=== PATIENT | male | born 1960 | race Caucasian/White ===

== ENCOUNTER 2020-09-16 08:00 | Outpatient (CLI) | payer MEDICAID ==
[2020-09-16 12:01] LABS: BASOPHILS # (AUTO) 0.1 10^3/uL (0.0-0.1); BASOPHILS % (AUTO) 1.1 %; EOSINOPHILS # (AUTO) 0.2 10^3/uL (0.0-0.7); HCT - HEMATOCRIT 45.4 % (42.0-52.0); HGB - HEMOGLOBIN 15.9 g/dL (14.0-18.0); LYMPHOCYTES # (AUTO) 1.5 10^3/uL (1.5-3.5); LYMPHOCYTES % (AUTO) 27.9 %; MEAN CORPUSCULAR HEMOGLOBIN 31.7 pg (27.0-31.0); MEAN CORPUSCULAR VOLUME 90.4 fL (80.0-94.0); MEAN PLATELET VOLUME 9.4 fL (7.4-11.4); MONOCYTES # (AUTO) 0.5 10^3/uL (0.0-1.0); MONOCYTES % (AUTO) 8.5 %; NEUTROPHILS # (AUTO) 3.2 10^3/uL (1.5-6.6); NEUTROPHILS % (AUTO) 58.9 %; PLT - PLATELET COUNT 268 10^3/uL (130-450); RED BLOOD COUNT 5.02 10^6/uL (4.70-6.10); RED CELL DISTRIBUTION WIDTH 12.2 % (12.0-15.0); WHITE BLOOD COUNT 5.4 x10^3/uL (4.8-10.8)
[2020-09-16 13:17] LABS: THYROID STIMULATING HORMONE 2.08 uIU/mL (0.34-5.60)
[2020-09-16 13:19] LABS: FREE T4 (FREE THYROXINE) 0.69 ng/dL (0.58-1.64)
[2020-09-16 13:20] LABS: ALBUMIN 4.2 g/dL (3.2-5.5); ALBUMIN/GLOBULIN RATIO 1.5 (1.0-2.2); ALKALINE PHOSPHATASE 65 IU/L (42-121); ALT ALANINE AMINOTRANSFERASE 24 IU/L (10-60); AST ASPARTATE AMINOTRANSFERASE 17 IU/L (10-42); BILIRUBIN,TOTAL 0.7 mg/dL (0.2-1.0); BUN - BLOOD UREA NITROGEN 13 mg/dL (6-20); CALCIUM 9.4 mg/dL (8.5-10.3); CARBON DIOXIDE - CO2 27 mmol/L (21-32); CHLORIDE 106 mmol/L (101-111); CREATININE 1.2 mg/dL (0.6-1.2); GFR - MDRD 62 (>89); GLUCOSE 96 mg/dL (70-100); POTASSIUM 3.8 mmol/L (3.5-5.0); SODIUM 142 mmol/L (135-145)
== END 2020-09-16 23:59 | disposition home or self-care (01) ==
LOC: LAB.WCP 08:00
PROVIDERS: ATTEND Psychiatry & Neurology Neurology
DX: F03.90 Unspecified dementia, unspecified severity, without behavioral disturbance, psychotic disturbance, mood disturbance, and anxiety (principal)
CPT/HCPCS: 36415; 80053; 82306; 82607; 83921; 84439; 84443; 85025; 86592; 86735; 86762

== ENCOUNTER 2022-01-16 05:36 | Emergency (ER) | payer MEDICAID ==
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
[2022-01-16 06:32] LABS: BASOPHILS % (AUTO) 0.5 %; EOSINOPHILS # (AUTO) 0.1 10^3/uL (0.0-0.7); EOSINOPHILS % (AUTO) 0.6 %; HCT - HEMATOCRIT 43.5 % (42.0-52.0); HGB - HEMOGLOBIN 15.7 g/dL (14.0-18.0); LYMPHOCYTES # (AUTO) 1.2 10^3/uL (1.5-3.5); LYMPHOCYTES % (AUTO) 15.6 %; MEAN CORPUSCULAR HEMOGLOBIN 31.7 pg (27.0-31.0); MEAN CORPUSCULAR HGB CONC 36.1 g/dL (32.0-36.0); MEAN CORPUSCULAR VOLUME 87.7 fL (80.0-94.0); MEAN PLATELET VOLUME 8.9 fL (7.4-11.4); MONOCYTES # (AUTO) 0.6 10^3/uL (0.0-1.0); MONOCYTES % (AUTO) 7.5 %; NEUTROPHILS # (AUTO) 5.9 10^3/uL (1.5-6.6); NEUTROPHILS % (AUTO) 75.4 %; PLT - PLATELET COUNT 265 10^3/uL (130-450); RED BLOOD COUNT 4.96 10^6/uL (4.70-6.10); RED CELL DISTRIBUTION WIDTH 12.1 % (12.0-15.0); WHITE BLOOD COUNT 7.9 x10^3/uL (4.8-10.8)
[2022-01-16 06:45] LABS: ALBUMIN 4.2 g/dL (3.2-5.5); ALBUMIN/GLOBULIN RATIO 1.6 (1.0-2.2); BILIRUBIN,TOTAL 1.2 mg/dL (0.2-1.0); CREATININE 1.2 mg/dL (0.6-1.2); POTASSIUM 3.9 mmol/L (3.5-5.0); TOTAL PROTEIN 6.9 g/dL (6.7-8.2)
--- OUTSIDE RECORDS SUMMARY | 2022-01-16 06:48 | EXTERNAL MEDICAL SUMMARY RPT | Continuity of Care Document ---
:1960 Author Organization [facility] Address [address] [place] [address] Phone Allergies and Intolerances date description facility type (no date) No Known Drug Allergies [facility] (unkn own) Encounters No information. Functional Status No information. Immunizations No information. Medications date description facility +0000 benzonatate 100 MG Oral Capsule [facility] Problems No information. Procedures date description facility +0000 [facility] +0000 [facility] Results/Labs test date author facility value unit interpret ation Result panel 1 (unknown) (no date) (unknown) (unknown) Negative (units (unkn own) unknown) Result panel 2 (unknown) (no date) (unknown) (unknown) (no value) (units (un known) unknown) (unknown) (no date) (unknown) (unknown) Date of (units (unkn own) Service: unknown) 11/06/21 (unknown) (no date) (unknown) (unknown) (no value) (units (un known) unknown) (unknown) (no date) (unknown) (unknown) Allergies (units (unk nown) unknown) (unknown) (no date) (unknown) (unknown) ED Orders (units (unk nown) unknown) (unknown) (no date) (unknown) (unknown) Emergency (units (unk nown) Report unknown) (unknown) (no date) (unknown) (unknown) [place] (units (unkn own) [facility] [address] unknown) [address] [place] [id number] (unknown) (no date) (unknown) (unknown) Lab Results (units (u nknown) unknown) (unknown) (no date) (unknown) (unknown) Vital Signs - (units (unknown) 8 hr unknown) (unknown) (no date) (unknown) (unknown) (no value) (units (un known) unknown) (unknown) (no date) (unknown) (unknown) 11/06/21 (units (unkn own) Range/Units unknown) (unknown) (no date) (unknown) (unknown) 22:00 (units (unkn own) unknown) (unknown) (no date) (unknown) (unknown) 11/06/21 (units (unkn own) unknown) (unknown) (no date) (unknown) (unknown) [id number] (units (unkn own) unknown) (unknown) (no date) (unknown) (unknown) 11/06/21 22:00 (units (unknown) unknown) (unknown) (no date) (unknown) (unknown) 22:07 (units (unkn own) unknown) (unknown) (no date) (unknown) (unknown) Age/Sex: 61 / (units (unknown) M unknown) (unknown) (no date) (unknown) (unknown) Allergy/AdvRea (units (unknown) c Type Severity unknown) Reaction Status Date / Time (unknown) (no date) (unknown) (unknown) Blood Pressure (units (unknown) 133/84 unknown) 11/06/21 22:07 (unknown) (no date) (unknown) (unknown) Blood Pressure (units (unknown) 133/84 unknown) (unknown) (no date) (unknown) (unknown) Essie Shetty (units (unknown) MD Teresa [Primary unknown) Care Provider] - (unknown) (no date) (unknown) (unknown) COVID19 -Nasal (units (unknown) RAPID/Pre-Proc unknown) Stat (unknown) (no date) (unknown) (unknown) Chief (units (unkn own) complaint: unknown) Upper Respiratory Symptoms (unknown) (no date) (unknown) (unknown) Course (units (unkn own) unknown) (unknown) (no date) (unknown) (unknown) : (units (unkn own) 1960 unknown) Acct:[id number] (unknown) (no date) (unknown) (unknown) Dementia (units (unkn own) unknown) (unknown) (no date) (unknown) (unknown) Departure (units (unk nown) unknown) (unknown) (no date) (unknown) (unknown) Discharge Plan (units (unknown) unknown) (unknown) (no date) (unknown) (unknown) ER Physician: (units (unknown) Victoriano Coats unknown) D.O. (unknown) (no date) (unknown) (unknown) Exam (units (unkn own) unknown) (unknown) (no date) (unknown) (unknown) General (units (unkn own) unknown) (unknown) (no date) (unknown) (unknown) H/O (units (unkn own) exploratory unknown) laparotomy (unknown) (no date) (unknown) (unknown) HPI - General (units (unknown) Adult unknown) (unknown) (no date) (unknown) (unknown) Initial Vital (units (unknown) Signs unknown) (unknown) (no date) (unknown) (unknown) Initial Vital (units (unknown) Signs: unknown) (unknown) (no date) (unknown) (unknown) Lab Data (units (unkn own) unknown) (unknown) (no date) (unknown) (unknown) Labs: (units (unkn own) unknown) (unknown) (no date) (unknown) (unknown) Medical (units (unkn own) Decision Making unknown) (unknown) (no date) (unknown) (unknown) Medical (units (unkn own) History unknown) (Updated 05/28/20 @ 00:00 by ) (unknown) (no date) (unknown) (unknown) Mode of (units (unkn own) arrival: unknown) Ambulatory (unknown) (no date) (unknown) (unknown) No Known Drug (units (unknown) Allergies unknown) Allergy Verified 05/13/20 15:39 (unknown) (no date) (unknown) (unknown) Ordered: (units (unkn own) unknown) (unknown) (no date) (unknown) (unknown) Orders (units (unkn own) unknown) (unknown) (no date) (unknown) (unknown) Patient (units (unkn own) History unknown) (unknown) (no date) (unknown) (unknown) Patient: (units (unkn own) Emeka Brown Mary Kay unknown) MR#: [id number] (unknown) (no date) (unknown) (unknown) Pulse Oximetry (units (unknown) 98 11/06/21 unknown) 22:07 (unknown) (no date) (unknown) (unknown) Pulse Oximetry (units (unknown) 98 unknown) (unknown) (no date) (unknown) (unknown) Pulse Rate 76 (units (unknown) 11/06/21 unknown) 22:07 (unknown) (no date) (unknown) (unknown) Pulse Rate 76 (units (unknown) unknown) (unknown) (no date) (unknown) (unknown) Referrals: (units (un known) unknown) (unknown) (no date) (unknown) (unknown) Related Data (units ( unknown) unknown) (unknown) (no date) (unknown) (unknown) Respiratory (units (u nknown) Rate 18 unknown) 11/06/21 22:07 (unknown) (no date) (unknown) (unknown) Respiratory (units (u nknown) Rate 18 unknown) (unknown) (no date) (unknown) (unknown) SARS-CoV-2 (units (un known) (PCR) Negative unknown) (Negative) (unknown) (no date) (unknown) (unknown) Signed By: (units (un known) unknown) (unknown) (no date) (unknown) (unknown) Smoking (units (unkn own) Status: Never unknown) smoker (unknown) (no date) (unknown) (unknown) Smoking (units (unkn own) Status: Never unknown) smoker (unknown) (no date) (unknown) (unknown) Social History (units (unknown) (Reviewed unknown) 05/13/20 @ 16:54 by Thais Sheehan DO) (unknown) (no date) (unknown) (unknown) Source: (units (unkn own) patient unknown) (unknown) (no date) (unknown) (unknown) Stated (units (unkn own) complaint: unknown) Coughing persistant X 6 (unknown) (no date) (unknown) (unknown) Substance Use (units (unknown) Type: does not unknown) use (unknown) (no date) (unknown) (unknown) Surgical (units (unkn own) History unknown) (Updated 05/13/20 @ 16:54 by Thais Sheehan DO) (unknown) (no date) (unknown) (unknown) Temperature (units (u nknown) 98.3 F unknown) 11/06/21 22:07 (unknown) (no date) (unknown) (unknown) Temperature (units (u nknown) 98.3 F unknown) (unknown) (no date) (unknown) (unknown) Time Seen by (units ( unknown) Provider: unknown) 11/06/21 22:06 (unknown) (no date) (unknown) (unknown) Vital Signs (units (u nknown) unknown) (unknown) (no date) (unknown) (unknown) Vital signs: (units ( unknown) unknown) (unknown) (no date) (unknown) (unknown) alcohol intake (units (unknown) frequency: unknown) holidays/specia l occasions only Result panel 3 (unknown) (no (unknown) (unknown) (no value) (units (unk nown) date) unknown) (unknown) (no (unknown) (unknown) Date of Service: (units (unknown) date) 11/06/21 unknown) (unknown) (no (unknown) (unknown) (no value) (units (unk nown) date) unknown) (unknown) (no (unknown) (unknown) 100 mg PO TID (units ( unknown) date) PRN (Reason: unknown) cough) Qty: 30 0RF (unknown) (no (unknown) (unknown) Allergies (units (unkn own) date) unknown) (unknown) (no (unknown) (unknown) Documented by: (units (unknown) date) HGUBERN unknown) (unknown) (no (unknown) (unknown) ED Orders (units (unkn own) date) unknown) (unknown) (no (unknown) (unknown) Emergency Report (units (unknown) date) unknown) (unknown) (no (unknown) (unknown) [facility] (units (unknown) date) [address] unknown) [place] [address] (unknown) (no (unknown) (unknown) Lab Results (units (un known) date) unknown) (unknown) (no (unknown) (unknown) Last Admin: (units (un known) date) 11/06/21 22:47 unknown) Dose: 100 mg (unknown) (no (unknown) (unknown) Previous Rx's (units ( unknown) date) unknown) (unknown) (no (unknown) (unknown) Stop: 11/06/21 (units (unknown) date) 22:36 unknown) (unknown) (no (unknown) (unknown) Vital Signs - 8 (units (unknown) date) hr unknown) (unknown) (no (unknown) (unknown) (no value) (units (unk nown) date) unknown) (unknown) (no (unknown) (unknown) 11/06/21 (units (unkno wn) date) Range/Units unknown) (unknown) (no (unknown) (unknown) 22:00 (units (unkno wn) date) unknown) (unknown) (no (unknown) (unknown) benzonatate 100 (units (unknown) date) mg capsule unknown) (unknown) (no (unknown) (unknown) 11/06/21 (units (unkno wn) date) unknown) (unknown) (no (unknown) (unknown) Cough (units (unkno wn) date) unknown) (unknown) (no (unknown) (unknown) Medication (units (unk nown) date) Instructions unknown) Recorded (unknown) (no (unknown) (unknown) [id number] (units (unkno wn) date) unknown) (unknown) (no (unknown) (unknown) 11/06/21 22:00 (units (unknown) date) unknown) (unknown) (no (unknown) (unknown) 22:07 (units (unkno wn) date) unknown) (unknown) (no (unknown) (unknown) Activity (units (unkno wn) date) Restrictions/Tono unknown) tional Instructions: (unknown) (no (unknown) (unknown) Age/Sex: 61 / M (units (unknown) date) unknown) (unknown) (no (unknown) (unknown) Allergy/AdvReac (units (unknown) date) Type Severity unknown) Reaction Status Date / Time (unknown) (no (unknown) (unknown) Benzonatate (units (un known) date) (Benzonatate 100 unknown) Mg Capsule) 100 mg PO NOW ONE (unknown) (no (unknown) (unknown) Blood Pressure (units (unknown) date) 133/84 11/06/21 unknown) 22:07 (unknown) (no (unknown) (unknown) Blood Pressure (units (unknown) date) 133/84 unknown) (unknown) (no (unknown) (unknown) Essie Shetty (units (unknown) date) MD Teresa [Primary unknown) Care Provider] - (unknown) (no (unknown) (unknown) COVID19 -Nasal (units (unknown) date) RAPID/Pre-Proc unknown) Stat (unknown) (no (unknown) (unknown) Chief complaint: (units (unknown) date) Upper Respiratory unknown) Symptoms (unknown) (no (unknown) (unknown) Clinical (units (unkno wn) date) Impression: unknown) (unknown) (no (unknown) (unknown) Contact your (units (un known) date) primary doctor unknown) for a follow-up. Return to the emergency department (unknown) (no (unknown) (unknown) Course (units (unkno wn) date) unknown) (unknown) (no (unknown) (unknown) : 1960 (units (unknown) date) Acct:[id number] unknown) (unknown) (no (unknown) (unknown) Dementia (units (unkno wn) date) unknown) (unknown) (no (unknown) (unknown) Departure (units (unkn own) date) unknown) (unknown) (no (unknown) (unknown) Discharge Plan (units (unknown) date) unknown) (unknown) (no (unknown) (unknown) Discontinued (units (u nknown) date) Medications unknown) (unknown) (no (unknown) (unknown) ER Physician: (units ( unknown) date) Victoriano Coats unknown) D.O. (unknown) (no (unknown) (unknown) Exam (units (unkno wn) date) unknown) (unknown) (no (unknown) (unknown) General (units (unkno wn) date) unknown) (unknown) (no (unknown) (unknown) H/O exploratory (units (unknown) date) laparotomy unknown) (unknown) (no (unknown) (unknown) HPI - General (units ( unknown) date) Adult unknown) (unknown) (no (unknown) (unknown) Initial Vital (units ( unknown) date) Signs unknown) (unknown) (no (unknown) (unknown) Initial Vital (units ( unknown) date) Signs: unknown) (unknown) (no (unknown) (unknown) Instructions: (units ( unknown) date) Cough unknown) (Alternative Therapy), Cough (unknown) (no (unknown) (unknown) Lab Data (units (unkno wn) date) unknown) (unknown) (no (unknown) (unknown) Labs: (units (unkno wn) date) unknown) (unknown) (no (unknown) (unknown) Medical Decision (units (unknown) date) Making unknown) (unknown) (no (unknown) (unknown) Medical History (units (unknown) date) (Updated 11/06/21 unknown) @ 22:39 by Victoriano Coats DO) (unknown) (no (unknown) (unknown) Mode of arrival: (units (unknown) date) Ambulatory unknown) (unknown) (no (unknown) (unknown) New (units (unkno wn) date) unknown) (unknown) (no (unknown) (unknown) No Known Drug (units ( unknown) date) Allergies Allergy unknown) Verified 05/13/20 15:39 (unknown) (no (unknown) (unknown) Ordered: (units (unkno wn) date) unknown) (unknown) (no (unknown) (unknown) Orders (units (unkno wn) date) unknown) (unknown) (no (unknown) (unknown) Patient (units (unkno wn) date) Disposition: Home unknown) (unknown) (no (unknown) (unknown) Patient History (units (unknown) date) unknown) (unknown) (no (unknown) (unknown) Patient: (units (unkno wn) date) Emeka Brown V unknown) MR#: [id number] (unknown) (no (unknown) (unknown) Prescriptions: (units (unknown) date) unknown) (unknown) (no (unknown) (unknown) Pulse Oximetry (units (unknown) date) 98 11/06/21 unknown) 22:07 (unknown) (no (unknown) (unknown) Pulse Oximetry (units (unknown) date) 98 unknown) (unknown) (no (unknown) (unknown) Pulse Rate 76 (units (unknown) date) 11/06/21 22:07 unknown) (unknown) (no (unknown) (unknown) Pulse Rate 76 (units ( unknown) date) unknown) (unknown) (no (unknown) (unknown) Referrals: (units (unk nown) date) unknown) (unknown) (no (unknown) (unknown) Related Data (units (u nknown) date) unknown) (unknown) (no (unknown) (unknown) Respiratory Rate (units (unknown) date) 18 11/06/21 unknown) 22:07 (unknown) (no (unknown) (unknown) Respiratory Rate (units (unknown) date) 18 unknown) (unknown) (no (unknown) (unknown) SARS-CoV-2 (PCR) (units (unknown) date) Negative unknown) (Negative) (unknown) (no (unknown) (unknown) Signed By: (units (unk nown) date) unknown) (unknown) (no (unknown) (unknown) Smoking Status: (units (unknown) date) Never smoker unknown) (unknown) (no (unknown) (unknown) Smoking Status: (units (unknown) date) Never smoker unknown) (unknown) (no (unknown) (unknown) Social History (units (unknown) date) (Reviewed unknown) 05/13/20 @ 16:54 by Thais Sheehan DO) (unknown) (no (unknown) (unknown) Source: patient (units (unknown) date) unknown) (unknown) (no (unknown) (unknown) Stated (units (unkno wn) date) complaint: unknown) Coughing persistant X 6 (unknown) (no (unknown) (unknown) Substance Use (units ( unknown) date) Type: does not unknown) use (unknown) (no (unknown) (unknown) Surgical History (units (unknown) date) (Updated 05/13/20 unknown) @ 16:54 by Thais Sheehan DO) (unknown) (no (unknown) (unknown) Temperature (units (un known) date) 98.3 F 11/06/21 unknown) 22:07 (unknown) (no (unknown) (unknown) Temperature 98.3 (units (unknown) date) F unknown) (unknown) (no (unknown) (unknown) Time Seen by (units (u nknown) date) Provider: unknown) 11/06/21 22:06 (unknown) (no (unknown) (unknown) Vital Signs (units (un known) date) unknown) (unknown) (no (unknown) (unknown) Vital signs: (units (u nknown) date) unknown) (unknown) (no (unknown) (unknown) Your COVID test (units (unknown) date) today was unknown) negative. You do not have pneumonia. Recommend that (unknown) (no (unknown) (unknown) alcohol intake (units (unknown) date) frequency: unknown) holidays/special occasions only (unknown) (no (unknown) (unknown) benzonatate 100 (units (unknown) date) mg capsule 100 mg unknown) PO TID PRN #30 cap 11/06/21 (unknown) (no (unknown) (unknown) for any new or (units (unknown) date) worsening unknown) symptoms. (unknown) (no (unknown) (unknown) take the cough (units (unknown) date) away. It was unknown) sent to [facility] in [place] per your request. (unknown) (no (unknown) (unknown) we try a cough (units (unknown) date) medicine unknown) unfortunately this medicine does not always completely Result panel 4 (unknown) (no (unknown) (unknown) (no value) (units (unk nown) date) unknown) (unknown) (no (unknown) (unknown) Date of Service: (units (unknown) date) 11/06/21 unknown) (unknown) (no (unknown) (unknown) (no value) (units (unk nown) date) unknown) (unknown) (no (unknown) (unknown) <Electronically (units (unknown) date) signed by Joby GravesOLavonne> (unknown) (no (unknown) (unknown) 11/06/21 2338 (units ( unknown) date) unknown) (unknown) (no (unknown) (unknown) 100 mg PO TID (units ( unknown) date) PRN (Reason: unknown) cough) Qty: 30 0RF (unknown) (no (unknown) (unknown) Allergies (units (unkn own) date) unknown) (unknown) (no (unknown) (unknown) Documented by: (units (unknown) date) HGUBERN unknown) (unknown) (no (unknown) (unknown) ED Orders (units (unkn own) date) unknown) (unknown) (no (unknown) (unknown) Emergency Report (units (unknown) date) unknown) (unknown) (no (unknown) (unknown) [facility] (units (unknown) date) [address] unknown) [place] [address] (unknown) (no (unknown) (unknown) Lab Results (units (un known) date) unknown) (unknown) (no (unknown) (unknown) Last Admin: (units (un known) date) 11/06/21 22:47 unknown) Dose: 100 mg (unknown) (no (unknown) (unknown) Previous Rx's (units ( unknown) date) unknown) (unknown) (no (unknown) (unknown) Stop: 11/06/21 (units (unknown) date) 22:36 unknown) (unknown) (no (unknown) (unknown) Vital Signs - 8 (units (unknown) date) hr unknown) (unknown) (no (unknown) (unknown) (no value) (units (unk nown) date) unknown) (unknown) (no (unknown) (unknown) 11/06/21 (units (unkno wn) date) Range/Units unknown) (unknown) (no (unknown) (unknown) 22:00 (units (unkno wn) date) unknown) (unknown) (no (unknown) (unknown) benzonatate 100 (units (unknown) date) mg capsule unknown) (unknown) (no (unknown) (unknown) 11/06/21 (units (unkno wn) date) unknown) (unknown) (no (unknown) (unknown) Cough (units (unkno wn) date) unknown) (unknown) (no (unknown) (unknown) Medication (units (unk nown) date) Instructions unknown) Recorded (unknown) (no (unknown) (unknown) [id number] (units (unkno wn) date) unknown) (unknown) (no (unknown) (unknown) 11/06/21 22:00 (units (unknown) date) unknown) (unknown) (no (unknown) (unknown) 22:07 (units (unkno wn) date) unknown) (unknown) (no (unknown) (unknown) 61-year-old Male (units (unknown) date) who is here for unknown) evaluation of a dry cough that he has had for (unknown) (no (unknown) (unknown) Activity (units (unkno wn) date) Restrictions/Tono unknown) tional Instructions: (unknown) (no (unknown) (unknown) Age/Sex: 61 / M (units (unknown) date) unknown) (unknown) (no (unknown) (unknown) Allergy/AdvReac (units (unknown) date) Type Severity unknown) Reaction Status Date / Time (unknown) (no (unknown) (unknown) Auscultation: (units ( unknown) date) clear to unknown) auscultation bilaterally (unknown) (no (unknown) (unknown) Benzonatate (units (un known) date) (Benzonatate 100 unknown) Mg Capsule) 100 mg PO NOW ONE (unknown) (no (unknown) (unknown) Blood Pressure (units (unknown) date) 133/84 11/06/21 unknown) 22:07 (unknown) (no (unknown) (unknown) Blood Pressure (units (unknown) date) 133/84 unknown) (unknown) (no (unknown) (unknown) Essie Shetty (units (unknown) date) MD Teresa [Primary unknown) Care Provider] - (unknown) (no (unknown) (unknown) COVID is (units (unkno wn) date) negative. Lungs unknown) are clear. Nonproductive cough. Not hypoxic. Not (unknown) (no (unknown) (unknown) COVID19 -Nasal (units (unknown) date) RAPID/Pre-Proc unknown) Stat (unknown) (no (unknown) (unknown) Cardiovascular (units (unknown) date) unknown) (unknown) (no (unknown) (unknown) Cardiovascular: (units (unknown) date) Reports system unknown) reviewed and no additional complaints, except as (unknown) (no (unknown) (unknown) Chief complaint: (units (unknown) date) Upper Respiratory unknown) Symptoms (unknown) (no (unknown) (unknown) Clinical (units (unkno wn) date) Impression: unknown) (unknown) (no (unknown) (unknown) Const (units (unkno wn) date) unknown) (unknown) (no (unknown) (unknown) Constitutional (units (unknown) date) unknown) (unknown) (no (unknown) (unknown) Constitutional: (units (unknown) date) Denies fever(s) unknown) (unknown) (no (unknown) (unknown) Contact your (units (un known) date) primary doctor unknown) for a follow-up. Return to the emergency department (unknown) (no (unknown) (unknown) Course (units (unkno wn) date) unknown) (unknown) (no (unknown) (unknown) : 1960 (units (unknown) date) Acct:[id number] unknown) (unknown) (no (unknown) (unknown) Dementia (units (unkno wn) date) unknown) (unknown) (no (unknown) (unknown) Departure (units (unkn own) date) unknown) (unknown) (no (unknown) (unknown) Discharge Plan (units (unknown) date) unknown) (unknown) (no (unknown) (unknown) Discontinued (units (u nknown) date) Medications unknown) (unknown) (no (unknown) (unknown) ENT (units (unkno wn) date) unknown) (unknown) (no (unknown) (unknown) ER Physician: (units ( unknown) date) Victoriano Coats unknown) D.O. (unknown) (no (unknown) (unknown) Ears, Nose, (units (un known) date) Mouth, and unknown) Throat: Reports system reviewed and no additional (unknown) (no (unknown) (unknown) Ears: TM's (units (unk nown) date) normal unknown) bilaterally (unknown) (no (unknown) (unknown) Effort + (units (unkno wn) date) Inspection: unknown) normal respiratory effort (unknown) (no (unknown) (unknown) Exam (units (unkno wn) date) unknown) (unknown) (no (unknown) (unknown) Extrem (units (unkno wn) date) unknown) (unknown) (no (unknown) (unknown) General (units (unkno wn) date) unknown) (unknown) (no (unknown) (unknown) General: (units (unkno wn) date) cooperative, unknown) comfortable and well developed (unknown) (no (unknown) (unknown) General: no (units (un known) date) rashes or lesions unknown) noted (unknown) (no (unknown) (unknown) General: normal (units (unknown) date) to inspection and unknown) capillary refill normal (unknown) (no (unknown) (unknown) H/O exploratory (units (unknown) date) laparotomy unknown) (unknown) (no (unknown) (unknown) HENMT (units (unkno wn) date) unknown) (unknown) (no (unknown) (unknown) HPI - General (units ( unknown) date) Adult unknown) (unknown) (no (unknown) (unknown) HPI narrative: (units (unknown) date) unknown) (unknown) (no (unknown) (unknown) Head: normal to (units (unknown) date) inspection and unknown) normocephalic (unknown) (no (unknown) (unknown) Hematologic/Lymp (units (unknown) date) hatic unknown) (unknown) (no (unknown) (unknown) History of (units (unk nown) date) Present Illness unknown) (unknown) (no (unknown) (unknown) Initial Vital (units ( unknown) date) Signs unknown) (unknown) (no (unknown) (unknown) Initial Vital (units ( unknown) date) Signs: unknown) (unknown) (no (unknown) (unknown) Instructions: (units ( unknown) date) Cough unknown) (Alternative Therapy), Cough (unknown) (no (unknown) (unknown) Integumentary/Br (units (unknown) date) easts unknown) (unknown) (no (unknown) (unknown) Lab Data (units (unkno wn) date) unknown) (unknown) (no (unknown) (unknown) Labs: (units (unkno wn) date) unknown) (unknown) (no (unknown) (unknown) MDM Narrative (units ( unknown) date) unknown) (unknown) (no (unknown) (unknown) Medical Decision (units (unknown) date) Making unknown) (unknown) (no (unknown) (unknown) Medical History (units (unknown) date) (Reviewed unknown) 11/06/21 @ 23:36 by Victoriano Coats DO) (unknown) (no (unknown) (unknown) Medical decision (units (unknown) date) making narrative: unknown) (unknown) (no (unknown) (unknown) Mode of arrival: (units (unknown) date) Ambulatory unknown) (unknown) (no (unknown) (unknown) Mouth: oral (units (un known) date) mucosae normal unknown) (unknown) (no (unknown) (unknown) New (units (unkno wn) date) unknown) (unknown) (no (unknown) (unknown) No Known Drug (units ( unknown) date) Allergies Allergy unknown) Verified 05/13/20 15:39 (unknown) (no (unknown) (unknown) On (units (unkno wn) date) Anticoagulants: unknown) No (unknown) (no (unknown) (unknown) Ordered: (units (unkno wn) date) unknown) (unknown) (no (unknown) (unknown) Orders (units (unkno wn) date) unknown) (unknown) (no (unknown) (unknown) Patient (units (unkno wn) date) Disposition: Home unknown) (unknown) (no (unknown) (unknown) Patient History (units (unknown) date) unknown) (unknown) (no (unknown) (unknown) Patient: (units (unkno wn) date) Emeka Brown V unknown) MR#: [id number] (unknown) (no (unknown) (unknown) Prescriptions: (units (unknown) date) unknown) (unknown) (no (unknown) (unknown) Pulse Oximetry (units (unknown) date) 98 11/06/21 unknown) 22:07 (unknown) (no (unknown) (unknown) Pulse Oximetry (units (unknown) date) 98 unknown) (unknown) (no (unknown) (unknown) Pulse Rate 76 (units (unknown) date) 11/06/21 22:07 unknown) (unknown) (no (unknown) (unknown) Pulse Rate 76 (units ( unknown) date) unknown) (unknown) (no (unknown) (unknown) Referrals: (units (unk nown) date) unknown) (unknown) (no (unknown) (unknown) Related Data (units (u nknown) date) unknown) (unknown) (no (unknown) (unknown) Resp (units (unkno wn) date) unknown) (unknown) (no (unknown) (unknown) Respiratory (units (un known) date) unknown) (unknown) (no (unknown) (unknown) Respiratory Rate (units (unknown) date) 18 11/06/21 unknown) 22:07 (unknown) (no (unknown) (unknown) Respiratory Rate (units (unknown) date) 18 unknown) (unknown) (no (unknown) (unknown) Respiratory: (units (u nknown) date) Reports as per unknown) HPI and Reports system reviewed and no additional (unknown) (no (unknown) (unknown) Review of (units (unkn own) date) Systems unknown) (unknown) (no (unknown) (unknown) SARS-CoV-2 (PCR) (units (unknown) date) Negative unknown) (Negative) (unknown) (no (unknown) (unknown) Signed By: (units (unk nown) date) unknown) (unknown) (no (unknown) (unknown) Skin (units (unkno wn) date) unknown) (unknown) (no (unknown) (unknown) Skin/Breast: (units (u nknown) date) Reports system unknown) reviewed and no additional complaints, except as (unknown) (no (unknown) (unknown) Smoking Status: (units (unknown) date) Never smoker unknown) (unknown) (no (unknown) (unknown) Smoking Status: (units (unknown) date) Never smoker unknown) (unknown) (no (unknown) (unknown) Social History (units (unknown) date) (Reviewed unknown) 11/06/21 @ 23:36 by Victoriano Coats DO) (unknown) (no (unknown) (unknown) Source: patient (units (unknown) date) unknown) (unknown) (no (unknown) (unknown) Stated (units (unkno wn) date) complaint: unknown) Coughing persistant X 6 (unknown) (no (unknown) (unknown) Substance Use (units ( unknown) date) Type: does not unknown) use (unknown) (no (unknown) (unknown) Surgical History (units (unknown) date) (Updated 05/13/20 unknown) @ 16:54 by Thais Sheehan DO) (unknown) (no (unknown) (unknown) Temperature (units (un known) date) 98.3 F 11/06/21 unknown) 22:07 (unknown) (no (unknown) (unknown) Temperature 98.3 (units (unknown) date) F unknown) (unknown) (no (unknown) (unknown) Throat: (units (unkno wn) date) posterior unknown) oropharynx normal (unknown) (no (unknown) (unknown) Time Seen by (units (u nknown) date) Provider: unknown) 11/06/21 22:06 (unknown) (no (unknown) (unknown) Vital Signs (units (un known) date) unknown) (unknown) (no (unknown) (unknown) Vital signs: (units (u nknown) date) unknown) (unknown) (no (unknown) (unknown) Your COVID test (units (unknown) date) today was unknown) negative. You do not have pneumonia. Recommend that (unknown) (no (unknown) (unknown) alcohol intake (units (unknown) date) frequency: unknown) holidays/special occasions only (unknown) (no (unknown) (unknown) arrival. Was (units ( unknown) date) concerned that unknown) the cough has persisted this long (unknown) (no (unknown) (unknown) benzonatate 100 (units (unknown) date) mg capsule 100 mg unknown) PO TID PRN #30 cap 11/06/21 (unknown) (no (unknown) (unknown) complaints, (units (un known) date) except as unknown) documented (unknown) (no (unknown) (unknown) complaints, (units (un known) date) except as unknown) documented and Reports as per HPI (unknown) (no (unknown) (unknown) documented (units (unk nown) date) unknown) (unknown) (no (unknown) (unknown) for any new or (units (unknown) date) worsening unknown) symptoms. (unknown) (no (unknown) (unknown) given return (units (u nknown) date) precautions. He unknown) did expressed understanding and agreement. (unknown) (no (unknown) (unknown) given the nature (units (unknown) date) of the cough. No unknown) indication for antibiotics currently. Will (unknown) (no (unknown) (unknown) he was informed (units (unknown) date) that this may not unknown) take his symptoms completely way. He was (unknown) (no (unknown) (unknown) indication for (units (unknown) date) radiologic unknown) studies. I do suspect upper respiratory infection (unknown) (no (unknown) (unknown) provide Tessalon (units (unknown) date) Perles to see if unknown) this does not improve so his symptoms however (unknown) (no (unknown) (unknown) shortness of (units (u nknown) date) breath, headache. unknown) Has not tried anything for symptoms prior to (unknown) (no (unknown) (unknown) tachypneic. (units (un known) date) Clear lung exam. unknown) Afebrile. Low suspicion for pneumonia. No (unknown) (no (unknown) (unknown) take the cough (units (unknown) date) away. It was unknown) sent to [facility] in [place] per your request. (unknown) (no (unknown) (unknown) the past 6 days. (units (unknown) date) He denies sinus unknown) congestion, sore throat, productive cough, (unknown) (no (unknown) (unknown) we try a cough (units (unknown) date) medicine unknown) unfortunately this medicine does not always completely Result panel 5 (unknown) (no (unknown) (unknown) (no value) (units (unk nown) date) unknown) (unknown) (no (unknown) (unknown) Date of (units (unkno wn) date) Service: unknown) 01/15/22 (unknown) (no (unknown) (unknown) (no value) (units (unk nown) date) unknown) (unknown) (no (unknown) (unknown) 100 mg PO TID (units ( unknown) date) PRN (Reason: unknown) cough) Qty: 30 0RF (unknown) (no (unknown) (unknown) Allergies (units (unkn own) date) unknown) (unknown) (no (unknown) (unknown) ED Orders (units (unkn own) date) unknown) (unknown) (no (unknown) (unknown) Emergency (units (unkn own) date) Report unknown) (unknown) (no (unknown) (unknown) [facility] (units (unknown) date) [address] [place] [address] unknown) [place] [address] (unknown) (no (unknown) (unknown) Previous Rx's (units ( unknown) date) unknown) (unknown) (no (unknown) (unknown) Vital Signs - 8 (units (unknown) date) hr unknown) (unknown) (no (unknown) (unknown) (no value) (units (unk nown) date) unknown) (unknown) (no (unknown) (unknown) benzonatate 100 (units (unknown) date) mg capsule unknown) (unknown) (no (unknown) (unknown) 01/15/22 (units (unkno wn) date) unknown) (unknown) (no (unknown) (unknown) Medication (units (unk nown) date) Instructions unknown) Recorded (unknown) (no (unknown) (unknown) [id number] (units (unkno wn) date) unknown) (unknown) (no (unknown) (unknown) 01/15/22 10:07 (units (unknown) date) unknown) (unknown) (no (unknown) (unknown) 10:08 (units (unkno wn) date) unknown) (unknown) (no (unknown) (unknown) Age/Sex: 61 / M (units (unknown) date) unknown) (unknown) (no (unknown) (unknown) Allergy/AdvReac (units (unknown) date) Type Severity unknown) Reaction Status Date / Time (unknown) (no (unknown) (unknown) Blood Pressure (units (unknown) date) 139/89 unknown) 01/15/22 10:08 (unknown) (no (unknown) (unknown) Blood Pressure (units (unknown) date) 139/89 unknown) (unknown) (no (unknown) (unknown) Essie Shetty (units (unknown) date) MD Teresa [Primary unknown) Care Provider] - (unknown) (no (unknown) (unknown) Chief (units (unkno wn) date) Complaint: unknown) Psychiatric Symptoms (unknown) (no (unknown) (unknown) Consult to [facility] [employer] (units (unknown) date) - Social unknown) Services Stat (unknown) (no (unknown) (unknown) Course (units (unkno wn) date) unknown) (unknown) (no (unknown) (unknown) : 1960 (units (unknown) date) unknown) Acct:[id number] (unknown) (no (unknown) (unknown) Dementia (units (unkno wn) date) unknown) (unknown) (no (unknown) (unknown) Departure (units (unkn own) date) unknown) (unknown) (no (unknown) (unknown) Discharge Plan (units (unknown) date) unknown) (unknown) (no (unknown) (unknown) ER Physician: (units ( unknown) date) Victoriano Coats unknown) D.O. (unknown) (no (unknown) (unknown) Exam (units (unkno wn) date) unknown) (unknown) (no (unknown) (unknown) General (units (unkno wn) date) unknown) (unknown) (no (unknown) (unknown) H/O exploratory (units (unknown) date) laparotomy unknown) (unknown) (no (unknown) (unknown) HPI - Psych (units (un known) date) unknown) (unknown) (no (unknown) (unknown) Initial Vital (units ( unknown) date) Signs unknown) (unknown) (no (unknown) (unknown) Initial Vital (units ( unknown) date) Signs: unknown) (unknown) (no (unknown) (unknown) Medical History (units (unknown) date) (Reviewed unknown) 11/06/21 @ 23:36 by Victoriano Coats DO) (unknown) (no (unknown) (unknown) Mode of (units (unkno wn) date) arrival: Family unknown) Vehicle (unknown) (no (unknown) (unknown) No Action (units (unkn own) date) unknown) (unknown) (no (unknown) (unknown) No Known Drug (units ( unknown) date) Allergies unknown) Allergy Verified 01/15/22 10:13 (unknown) (no (unknown) (unknown) Ordered: (units (unkno wn) date) unknown) (unknown) (no (unknown) (unknown) Orders (units (unkno wn) date) unknown) (unknown) (no (unknown) (unknown) Oxygen Delivery (units (unknown) date) Method unknown) 01/15/22 10:08 (unknown) (no (unknown) (unknown) Oxygen Delivery (units (unknown) date) Method Room Air unknown) (unknown) (no (unknown) (unknown) Patient History (units (unknown) date) unknown) (unknown) (no (unknown) (unknown) Patient: (units (unkno wn) date) Emeka Brown V unknown) MR#: [id number] (unknown) (no (unknown) (unknown) Prescriptions: (units (unknown) date) unknown) (unknown) (no (unknown) (unknown) Pulse Oximetry (units (unknown) date) 97 01/15/22 unknown) 10:08 (unknown) (no (unknown) (unknown) Pulse Oximetry (units (unknown) date) 97 unknown) (unknown) (no (unknown) (unknown) Pulse Rate 76 (units (unknown) date) 01/15/22 10:08 unknown) (unknown) (no (unknown) (unknown) Pulse Rate 76 (units ( unknown) date) unknown) (unknown) (no (unknown) (unknown) Referrals: (units (unk nown) date) unknown) (unknown) (no (unknown) (unknown) Related Data (units (u nknown) date) unknown) (unknown) (no (unknown) (unknown) Respiratory (units (un known) date) Rate 20 unknown) 01/15/22 10:08 (unknown) (no (unknown) (unknown) Respiratory (units (un known) date) Rate 20 unknown) (unknown) (no (unknown) (unknown) Signed By: (units (unk nown) date) unknown) (unknown) (no (unknown) (unknown) Smoking Status: (units (unknown) date) Never smoker unknown) (unknown) (no (unknown) (unknown) Smoking Status: (units (unknown) date) Never smoker unknown) (unknown) (no (unknown) (unknown) Social History (units (unknown) date) (Reviewed unknown) 11/06/21 @ 23:36 by Victoriano Coats DO) (unknown) (no (unknown) (unknown) Source: patient (units (unknown) date) unknown) (unknown) (no (unknown) (unknown) Stated (units (unkno wn) date) Complaint: unknown) Mental concerns- not taking meds (unknown) (no (unknown) (unknown) Substance Use (units ( unknown) date) Type: does not unknown) use (unknown) (no (unknown) (unknown) Surgical (units (unkno wn) date) History (Updated unknown) 05/13/20 @ 16:54 by Thais Sheehan DO) (unknown) (no (unknown) (unknown) Temperature (units (un known) date) 98.6 F unknown) 01/15/22 10:08 (unknown) (no (unknown) (unknown) Temperature (units (un known) date) 98.6 F unknown) (unknown) (no (unknown) (unknown) Time Seen by (units (u nknown) date) Provider: unknown) 01/15/22 10:06 (unknown) (no (unknown) (unknown) Vital Signs (units (un known) date) unknown) (unknown) (no (unknown) (unknown) Vital signs: (units (u nknown) date) unknown) (unknown) (no (unknown) (unknown) alcohol intake (units (unknown) date) frequency: unknown) holidays/special occasions only (unknown) (no (unknown) (unknown) benzonatate 100 (units (unknown) date) mg capsule 100 unknown) mg PO TID PRN cough #30 caps 11/06/21 Result panel 6 (unknown) (no (unknown) (unknown) (no value) (units (unk nown) date) unknown) (unknown) (no (unknown) (unknown) Date of Service: (units (unknown) date) 01/15/22 unknown) (unknown) (no (unknown) (unknown) (no value) (units (unk nown) date) unknown) (unknown) (no (unknown) (unknown) 100 mg PO TID PRN (units (unknown) date) (Reason: cough) unknown) Qty: 30 0RF (unknown) (no (unknown) (unknown) Allergies (units (unkn own) date) unknown) (unknown) (no (unknown) (unknown) ED Orders (units (unkn own) date) unknown) (unknown) (no (unknown) (unknown) Emergency Report (units (unknown) date) unknown) (unknown) (no (unknown) (unknown) [facility] (units (unknown) date) [address] [place] [address] unknown) [place] [address] (unknown) (no (unknown) (unknown) Previous Rx's (units ( unknown) date) unknown) (unknown) (no (unknown) (unknown) Vital Signs - 8 hr (units (unknown) date) unknown) (unknown) (no (unknown) (unknown) (no value) (units (unk nown) date) unknown) (unknown) (no (unknown) (unknown) benzonatate 100 mg (units (unknown) date) capsule unknown) (unknown) (no (unknown) (unknown) 01/15/22 (units (unkno wn) date) unknown) (unknown) (no (unknown) (unknown) Medication (units (unk nown) date) Instructions unknown) Recorded (unknown) (no (unknown) (unknown) [id number] (units (unkno wn) date) unknown) (unknown) (no (unknown) (unknown) 01/15/22 10:07 (units (unknown) date) unknown) (unknown) (no (unknown) (unknown) 10:08 (units (unkno wn) date) unknown) (unknown) (no (unknown) (unknown) ?straightened out? (units (unknown) date) in his mind on what unknown) medications he should be taking. (unknown) (no (unknown) (unknown) Age/Sex: 61 / M (units (unknown) date) unknown) (unknown) (no (unknown) (unknown) Allergy/AdvReac (units (unknown) date) Type Severity unknown) Reaction Status Date / Time (unknown) (no (unknown) (unknown) Blood Pressure (units (unknown) date) 139/89 01/15/22 unknown) 10:08 (unknown) (no (unknown) (unknown) Blood Pressure (units (unknown) date) 139/89 unknown) (unknown) (no (unknown) (unknown) Essie Shetty, (units (unknown) date) MD [Primary Care unknown) Provider] - (unknown) (no (unknown) (unknown) Cardio (units (unkno wn) date) unknown) (unknown) (no (unknown) (unknown) Cardiovascular (units (unknown) date) unknown) (unknown) (no (unknown) (unknown) Chief Complaint: (units (unknown) date) Psychiatric unknown) Symptoms (unknown) (no (unknown) (unknown) Comments: (units (unkn own) date) unknown) (unknown) (no (unknown) (unknown) Const (units (unkno wn) date) unknown) (unknown) (no (unknown) (unknown) Consult to [employer] [facility] - (units (unknown) date) Adjunct Faculty Mathematics Department unknown) Stat (unknown) (no (unknown) (unknown) Course (units (unkno wn) date) unknown) (unknown) (no (unknown) (unknown) : 1960 (units (unknown) date) Acct:[id number] unknown) (unknown) (no (unknown) (unknown) Dementia (units (unkno wn) date) unknown) (unknown) (no (unknown) (unknown) Denies abdominal (units (unknown) date) pain unknown) (unknown) (no (unknown) (unknown) Departure (units (unkn own) date) unknown) (unknown) (no (unknown) (unknown) Discharge Plan (units (unknown) date) unknown) (unknown) (no (unknown) (unknown) ER Physician: (units ( unknown) date) Victoriano Coats D.O. unknown) (unknown) (no (unknown) (unknown) Effort + (units (unkno wn) date) Inspection: normal unknown) respiratory effort (unknown) (no (unknown) (unknown) Exam (units (unkno wn) date) unknown) (unknown) (no (unknown) (unknown) Extrem (units (unkno wn) date) unknown) (unknown) (no (unknown) (unknown) Gastrointestinal (units (unknown) date) unknown) (unknown) (no (unknown) (unknown) General (units (unkno wn) date) unknown) (unknown) (no (unknown) (unknown) General: (units (unkno wn) date) cooperative and unknown) healthy appearing (unknown) (no (unknown) (unknown) General: no rashes (units (unknown) date) or lesions noted unknown) (unknown) (no (unknown) (unknown) General: normal to (units (unknown) date) inspection unknown) (unknown) (no (unknown) (unknown) General: patient (units (unknown) date) alert, patient unknown) awake and moves all extremities (unknown) (no (unknown) (unknown) H/O exploratory (units (unknown) date) laparotomy unknown) (unknown) (no (unknown) (unknown) HENMT (units (unkno wn) date) unknown) (unknown) (no (unknown) (unknown) HPI - Psych (units (un known) date) unknown) (unknown) (no (unknown) (unknown) HPI Narrative: (units (unknown) date) unknown) (unknown) (no (unknown) (unknown) Head: normal to (units (unknown) date) inspection unknown) (unknown) (no (unknown) (unknown) History of Present (units (unknown) date) Illness unknown) (unknown) (no (unknown) (unknown) Initial Vital (units ( unknown) date) Signs unknown) (unknown) (no (unknown) (unknown) Initial Vital (units ( unknown) date) Signs: unknown) (unknown) (no (unknown) (unknown) [place] ?down at (units (unknown) date) [facility]. He was unknown) on 2 specific medications and was started (unknown) (no (unknown) (unknown) Medical History (units (unknown) date) (Reviewed 01/15/22 unknown) @ 10:24 by Victoriano Coats DO) (unknown) (no (unknown) (unknown) Mode of arrival: (units (unknown) date) Family Vehicle unknown) (unknown) (no (unknown) (unknown) Neuro (units (unkno wn) date) unknown) (unknown) (no (unknown) (unknown) No Action (units (unkn own) date) unknown) (unknown) (no (unknown) (unknown) No Known Drug (units ( unknown) date) Allergies Allergy unknown) Verified 01/15/22 10:13 (unknown) (no (unknown) (unknown) Ordered: (units (unkno wn) date) unknown) (unknown) (no (unknown) (unknown) Orders (units (unkno wn) date) unknown) (unknown) (no (unknown) (unknown) Oxygen Delivery (units (unknown) date) Method 01/15/22 unknown) 10:08 (unknown) (no (unknown) (unknown) Oxygen Delivery (units (unknown) date) Method Room Air unknown) (unknown) (no (unknown) (unknown) Patient History (units (unknown) date) unknown) (unknown) (no (unknown) (unknown) Patient denies (units (unknown) date) chest pain unknown) (unknown) (no (unknown) (unknown) Patient is a (units (u nknown) date) 61-year-old male. unknown) He is here with his brother. Apparently has a (unknown) (no (unknown) (unknown) Patient: (units (unkno wn) date) Emeka Brown V unknown) MR#: [id number] (unknown) (no (unknown) (unknown) Prescriptions: (units (unknown) date) unknown) (unknown) (no (unknown) (unknown) Psychiatric (units (un known) date) unknown) (unknown) (no (unknown) (unknown) Psychiatric: (units (u nknown) date) Reports system unknown) reviewed and no additional complaints, except as (unknown) (no (unknown) (unknown) Pulse Oximetry 97 (units (unknown) date) 01/15/22 10:08 unknown) (unknown) (no (unknown) (unknown) Pulse Oximetry 97 (units (unknown) date) unknown) (unknown) (no (unknown) (unknown) Pulse Rate 76 (units (unknown) date) 01/15/22 10:08 unknown) (unknown) (no (unknown) (unknown) Pulse Rate 76 (units ( unknown) date) unknown) (unknown) (no (unknown) (unknown) Rate: regular rate (units (unknown) date) unknown) (unknown) (no (unknown) (unknown) Referrals: (units (unk nown) date) unknown) (unknown) (no (unknown) (unknown) Related Data (units (u nknown) date) unknown) (unknown) (no (unknown) (unknown) Resp (units (unkno wn) date) unknown) (unknown) (no (unknown) (unknown) Respiratory (units (un known) date) unknown) (unknown) (no (unknown) (unknown) Respiratory Rate (units (unknown) date) 01/15/22 10:08 unknown) (unknown) (no (unknown) (unknown) Respiratory Rate (units (unknown) date) 20 unknown) (unknown) (no (unknown) (unknown) Review of Systems (units (unknown) date) unknown) (unknown) (no (unknown) (unknown) Shortness of (units (u nknown) date) breath unknown) (unknown) (no (unknown) (unknown) Signed By: (units (unk nown) date) unknown) (unknown) (no (unknown) (unknown) Skin (units (unkno wn) date) unknown) (unknown) (no (unknown) (unknown) Smoking Status: (units (unknown) date) Never smoker unknown) (unknown) (no (unknown) (unknown) Smoking Status: (units (unknown) date) Never smoker unknown) (unknown) (no (unknown) (unknown) Social History (units (unknown) date) (Reviewed 01/15/22 unknown) @ 10:24 by Victoriano Coats DO) (unknown) (no (unknown) (unknown) Source: patient (units (unknown) date) and family unknown) (Brother) (unknown) (no (unknown) (unknown) Stated Complaint: (units (unknown) date) Mental concerns- unknown) not taking meds (unknown) (no (unknown) (unknown) Substance Use (units ( unknown) date) Type: does not use unknown) (unknown) (no (unknown) (unknown) Surgical History (units (unknown) date) (Updated 05/13/20 @ unknown) 16:54 by Thais Sheehan DO) (unknown) (no (unknown) (unknown) Temperature 98.6 (units (unknown) date) F 01/15/22 10:08 unknown) (unknown) (no (unknown) (unknown) Temperature 98.6 F (units (unknown) date) unknown) (unknown) (no (unknown) (unknown) Time Seen by (units (u nknown) date) Provider: 01/15/22 unknown) 10:06 (unknown) (no (unknown) (unknown) Vital Signs (units (un known) date) unknown) (unknown) (no (unknown) (unknown) Vital signs: (units (u nknown) date) unknown) (unknown) (no (unknown) (unknown) alcohol intake (units (unknown) date) frequency: unknown) holidays/special occasions only (unknown) (no (unknown) (unknown) benzonatate 100 mg (units (unknown) date) capsule 100 mg PO unknown) TID PRN cough #30 caps 11/06/21 (unknown) (no (unknown) (unknown) diagnosis of (units (u nknown) date) dementia. Patient unknown) has no specific complaints. He was brought to (unknown) (no (unknown) (unknown) documented (units (unk nown) date) unknown) (unknown) (no (unknown) (unknown) managing his own (units (unknown) date) medicines. His unknown) brother states that he now can not find the (unknown) (no (unknown) (unknown) not been taking his (units (unknown) date) medications as unknown) directed. He was recently seen at the [facility] (unknown) (no (unknown) (unknown) not need to take (units (unknown) date) his other 2 unknown) medications now and only the trazodone. There is (unknown) (no (unknown) (unknown) obviously issues (units (unknown) date) with his medication unknown) management. The patient has been mostly (unknown) (no (unknown) (unknown) on trazodone (units (u nknown) date) recently. His unknown) brother states that the patient thinks that he does (unknown) (no (unknown) (unknown) somewhat agitated. (units (unknown) date) Brother states unknown) that he brought the patient in to get (unknown) (no (unknown) (unknown) the emergency (units (u nknown) date) department today by unknown) his brother because apparently the patient has (unknown) (no (unknown) (unknown) trazodone or 1 of (units (unknown) date) his other unknown) medicines. Apparently the patient has become Result panel 7 (unknown) (no (unknown) (unknown) (no value) (units (unk nown) date) unknown) (unknown) (no (unknown) (unknown) Date of Service: (units (unknown) date) 01/15/22 unknown) (unknown) (no (unknown) (unknown) (no value) (units (unk nown) date) unknown) (unknown) (no (unknown) (unknown) <Electronically (units (unknown) date) signed by Victoriano conklin) Luiz Coats> (unknown) (no (unknown) (unknown) 01/15/22 1141 (units ( unknown) date) unknown) (unknown) (no (unknown) (unknown) 100 mg PO TID PRN (units (unknown) date) (Reason: cough) unknown) Qty: 30 0RF (unknown) (no (unknown) (unknown) Allergies (units (unkn own) date) unknown) (unknown) (no (unknown) (unknown) ED Orders (units (unkn own) date) unknown) (unknown) (no (unknown) (unknown) Emergency Report (units (unknown) date) unknown) (unknown) (no (unknown) (unknown) [facility] (units (unknown) date) [address] unknown) [place] [address] (unknown) (no (unknown) (unknown) Previous Rx's (units ( unknown) date) unknown) (unknown) (no (unknown) (unknown) Vital Signs - 8 hr (units (unknown) date) unknown) (unknown) (no (unknown) (unknown) (no value) (units (unk nown) date) unknown) (unknown) (no (unknown) (unknown) benzonatate 100 mg (units (unknown) date) capsule unknown) (unknown) (no (unknown) (unknown) 01/15/22 (units (unkno wn) date) unknown) (unknown) (no (unknown) (unknown) Dementia (units (unkno wn) date) unknown) (unknown) (no (unknown) (unknown) Medication (units (unk nown) date) Instructions unknown) Recorded (unknown) (no (unknown) (unknown) [id number] (units (unkno wn) date) unknown) (unknown) (no (unknown) (unknown) 01/15/22 10:07 (units (unknown) date) unknown) (unknown) (no (unknown) (unknown) 10:08 (units (unkno wn) date) unknown) (unknown) (no (unknown) (unknown) ?straightened out? (units (unknown) date) in his mind on what unknown) medications he should be taking. (unknown) (no (unknown) (unknown) Activity (units (unkno wn) date) Restrictions/Additi unknown) onal Instructions: (unknown) (no (unknown) (unknown) Age/Sex: 61 / M (units (unknown) date) unknown) (unknown) (no (unknown) (unknown) Allergy/AdvReac (units (unknown) date) Type Severity unknown) Reaction Status Date / Time (unknown) (no (unknown) (unknown) Blood Pressure (units (unknown) date) 139/89 01/15/22 unknown) 10:08 (unknown) (no (unknown) (unknown) Blood Pressure (units (unknown) date) 139/89 unknown) (unknown) (no (unknown) (unknown) Essie Shetty, (units (unknown) date) MD [Primary Care unknown) Provider] - (unknown) (no (unknown) (unknown) Cardio (units (unkno wn) date) unknown) (unknown) (no (unknown) (unknown) Cardiovascular (units (unknown) date) unknown) (unknown) (no (unknown) (unknown) Chief Complaint: (units (unknown) date) Psychiatric unknown) Symptoms (unknown) (no (unknown) (unknown) Clinical (units (unkno wn) date) Impression: unknown) (unknown) (no (unknown) (unknown) Comments: (units (unkn own) date) unknown) (unknown) (no (unknown) (unknown) Const (units (unkno wn) date) unknown) (unknown) (no (unknown) (unknown) Consult to [employer] - (units (unknown) date) Adjunct Faculty Mathematics Department unknown) Stat (unknown) (no (unknown) (unknown) Course (units (unkno wn) date) unknown) (unknown) (no (unknown) (unknown) : 1960 (units (unknown) date) Acct:[id number] unknown) (unknown) (no (unknown) (unknown) Dementia (units (unkno wn) date) unknown) (unknown) (no (unknown) (unknown) Denies abdominal (units (unknown) date) pain unknown) (unknown) (no (unknown) (unknown) Departure (units (unkn own) date) unknown) (unknown) (no (unknown) (unknown) Discharge Plan (units (unknown) date) unknown) (unknown) (no (unknown) (unknown) ER Physician: (units ( unknown) date) Victoriano Coats D.O. unknown) (unknown) (no (unknown) (unknown) Effort + (units (unkno wn) date) Inspection: normal unknown) respiratory effort (unknown) (no (unknown) (unknown) Exam (units (unkno wn) date) unknown) (unknown) (no (unknown) (unknown) Extrem (units (unkno wn) date) unknown) (unknown) (no (unknown) (unknown) Gastrointestinal (units (unknown) date) unknown) (unknown) (no (unknown) (unknown) General (units (unkno wn) date) unknown) (unknown) (no (unknown) (unknown) General: (units (unkno wn) date) cooperative and unknown) healthy appearing (unknown) (no (unknown) (unknown) General: no rashes (units (unknown) date) or lesions noted unknown) (unknown) (no (unknown) (unknown) General: normal to (units (unknown) date) inspection unknown) (unknown) (no (unknown) (unknown) General: patient (units (unknown) date) alert, patient unknown) awake and moves all extremities (unknown) (no (unknown) (unknown) H/O exploratory (units (unknown) date) laparotomy unknown) (unknown) (no (unknown) (unknown) HENMT (units (unkno wn) date) unknown) (unknown) (no (unknown) (unknown) HPI - Psych (units (un known) date) unknown) (unknown) (no (unknown) (unknown) HPI Narrative: (units (unknown) date) unknown) (unknown) (no (unknown) (unknown) Head: normal to (units (unknown) date) inspection unknown) (unknown) (no (unknown) (unknown) His brother states (units (unknown) date) that the patient unknown) thinks that he only needs to be on the (unknown) (no (unknown) (unknown) His brothers (units (u nknown) date) concern was that he unknown) was not taking his medications as directed. (unknown) (no (unknown) (unknown) History of Present (units (unknown) date) Illness unknown) (unknown) (no (unknown) (unknown) Initial Vital (units ( unknown) date) Signs unknown) (unknown) (no (unknown) (unknown) Initial Vital (units ( unknown) date) Signs: unknown) (unknown) (no (unknown) (unknown) [place] ?down at (units (unknown) date) [facility]. He was unknown) on 2 specific medications and was started (unknown) (no (unknown) (unknown) MDM - Psych (units (un known) date) unknown) (unknown) (no (unknown) (unknown) MDM Narrative (units ( unknown) date) unknown) (unknown) (no (unknown) (unknown) Medical History (units (unknown) date) (Reviewed 01/15/22 unknown) @ 10:24 by Victoriano Coats DO) (unknown) (no (unknown) (unknown) Medical decision (units (unknown) date) making narrative: unknown) (unknown) (no (unknown) (unknown) Mode of arrival: (units (unknown) date) Family Vehicle unknown) (unknown) (no (unknown) (unknown) Neuro (units (unkno wn) date) unknown) (unknown) (no (unknown) (unknown) No Action (units (unkn own) date) unknown) (unknown) (no (unknown) (unknown) No Known Drug (units ( unknown) date) Allergies Allergy unknown) Verified 01/15/22 10:13 (unknown) (no (unknown) (unknown) Ordered: (units (unkno wn) date) unknown) (unknown) (no (unknown) (unknown) Orders (units (unkno wn) date) unknown) (unknown) (no (unknown) (unknown) Oxygen Delivery (units (unknown) date) Method 01/15/22 unknown) 10:08 (unknown) (no (unknown) (unknown) Oxygen Delivery (units (unknown) date) Method Room Air unknown) (unknown) (no (unknown) (unknown) Patient (units (unkno wn) date) Disposition: Home unknown) (unknown) (no (unknown) (unknown) Patient History (units (unknown) date) unknown) (unknown) (no (unknown) (unknown) Patient denies (units (unknown) date) chest pain unknown) (unknown) (no (unknown) (unknown) Patient has been (units (unknown) date) calm since being unknown) here in the ER. He is here with his brother. (unknown) (no (unknown) (unknown) Patient is a (units (u nknown) date) 61-year-old male. unknown) He is here with his brother. Apparently has a (unknown) (no (unknown) (unknown) Patient: (units (unkno wn) date) Emeka Brown V unknown) MR#: [id number] (unknown) (no (unknown) (unknown) Emeka, you should (units (unknown) date) be taking all 3 unknown) medications that have been provided to you by (unknown) (no (unknown) (unknown) Prescriptions: (units (unknown) date) unknown) (unknown) (no (unknown) (unknown) Psychiatric (units (un known) date) unknown) (unknown) (no (unknown) (unknown) Psychiatric: (units (u nknown) date) Reports system unknown) reviewed and no additional complaints, except as (unknown) (no (unknown) (unknown) Pulse Oximetry 97 (units (unknown) date) 01/15/22 10:08 unknown) (unknown) (no (unknown) (unknown) Pulse Oximetry 97 (units (unknown) date) unknown) (unknown) (no (unknown) (unknown) Pulse Rate 76 (units (unknown) date) 01/15/22 10:08 unknown) (unknown) (no (unknown) (unknown) Pulse Rate 76 (units ( unknown) date) unknown) (unknown) (no (unknown) (unknown) Rate: regular rate (units (unknown) date) unknown) (unknown) (no (unknown) (unknown) Referrals: (units (unk nown) date) unknown) (unknown) (no (unknown) (unknown) Related Data (units (u nknown) date) unknown) (unknown) (no (unknown) (unknown) Resp (units (unkno wn) date) unknown) (unknown) (no (unknown) (unknown) Respiratory (units (un known) date) unknown) (unknown) (no (unknown) (unknown) Respiratory Rate (units (unknown) date) 20 01/15/22 10:08 unknown) (unknown) (no (unknown) (unknown) Respiratory Rate (units (unknown) date) 20 unknown) (unknown) (no (unknown) (unknown) Review of Systems (units (unknown) date) unknown) (unknown) (no (unknown) (unknown) Shortness of (units (u nknown) date) breath unknown) (unknown) (no (unknown) (unknown) Signed By: (units (unk nown) date) unknown) (unknown) (no (unknown) (unknown) Skin (units (unkno wn) date) unknown) (unknown) (no (unknown) (unknown) Smoking Status: (units (unknown) date) Never smoker unknown) (unknown) (no (unknown) (unknown) Smoking Status: (units (unknown) date) Never smoker unknown) (unknown) (no (unknown) (unknown) Social History (units (unknown) date) (Reviewed 01/15/22 unknown) @ 10:24 by Victoriano Coats DO) (unknown) (no (unknown) (unknown) Source: patient (units (unknown) date) and family unknown) (Brother) (unknown) (no (unknown) (unknown) Stated Complaint: (units (unknown) date) Mental concerns- unknown) not taking meds (unknown) (no (unknown) (unknown) Substance Use (units ( unknown) date) Type: does not use unknown) (unknown) (no (unknown) (unknown) Surgical History (units (unknown) date) (Updated 05/13/20 @ unknown) 16:54 by Thais Sheehan DO) (unknown) (no (unknown) (unknown) Temperature 98.6 (units (unknown) date) F 01/15/22 10:08 unknown) (unknown) (no (unknown) (unknown) Temperature 98.6 F (units (unknown) date) unknown) (unknown) (no (unknown) (unknown) Time Seen by (units (u nknown) date) Provider: 01/15/22 unknown) 10:06 (unknown) (no (unknown) (unknown) Vital Signs (units (un known) date) unknown) (unknown) (no (unknown) (unknown) Vital signs: (units (u nknown) date) unknown) (unknown) (no (unknown) (unknown) ability to take (units (unknown) date) care of the patient unknown) at home. Unfortunately there is no social (unknown) (no (unknown) (unknown) alcohol intake (units (unknown) date) frequency: unknown) holidays/special occasions only (unknown) (no (unknown) (unknown) and [id number] (units (unknown) date) are trying to help unknown) you in it is safe to be at home with them. (unknown) (no (unknown) (unknown) benzonatate 100 mg (units (unknown) date) capsule 100 mg PO unknown) TID PRN cough #30 caps 11/06/21 (unknown) (no (unknown) (unknown) diagnosis of (units (u nknown) date) dementia. Patient unknown) has no specific complaints. He was brought to (unknown) (no (unknown) (unknown) documented (units (unk nown) date) unknown) (unknown) (no (unknown) (unknown) him that his (units (u nknown) date) brother can help unknown) him take the medicines. He agreed to take the (unknown) (no (unknown) (unknown) managing his own (units (unknown) date) medicines. His unknown) brother states that he now can not find the (unknown) (no (unknown) (unknown) medications. Will (units (unknown) date) discharge patient unknown) home. (unknown) (no (unknown) (unknown) not been taking his (units (unknown) date) medications as unknown) directed. He was recently seen at the ?brain (unknown) (no (unknown) (unknown) not need to take (units (unknown) date) his other 2 unknown) medications now and only the trazodone. There is (unknown) (no (unknown) (unknown) obviously issues (units (unknown) date) with his medication unknown) management. The patient has been mostly (unknown) (no (unknown) (unknown) on trazodone (units (u nknown) date) recently. His unknown) brother states that the patient thinks that he does (unknown) (no (unknown) (unknown) or any other (units (u nknown) date) psychiatric unknown) admission. Unfortunately there is not much more that (unknown) (no (unknown) (unknown) somewhat agitated. (units (unknown) date) Brother states unknown) that he brought the patient in to get (unknown) (no (unknown) (unknown) that he should be (units (unknown) date) taking the 3 unknown) medications. I did tell him this. I informed (unknown) (no (unknown) (unknown) the emergency (units (u nknown) date) department today by unknown) his brother because apparently the patient has (unknown) (no (unknown) (unknown) trazodone and not (units (unknown) date) the other 2 unknown) medications. The brother's concerned about his (unknown) (no (unknown) (unknown) trazodone or 1 of (units (unknown) date) his other unknown) medicines. Apparently the patient has become (unknown) (no (unknown) (unknown) we can offer out (units (unknown) date) of the emergency unknown) department other than reassure the patient (unknown) (no (unknown) (unknown) work available (units (unknown) date) today. The patient unknown) is not going to meet any criteria for a [facility] (unknown) (no (unknown) (unknown) your doctors. (units (u nknown) date) These medications unknown) should help make you feel better. Your brother Social History date description facility (no date) Never smoked tobacco ([facility] Vital Signs date measurement value units +0000 BP_diastolic BP_diastolic 84 mm[H g] +0000 BP_systolic BP_systolic 133 mm[Hg] +0000 heart_rate heart_rate 76 /min +0000 respiration_rate respiration_rate 18 /min +0000 temperature_metric temperature_metric 36.83 C +0000 temperature_standard temperature_standard 9 8.3 F +0000 weight_metric weight_metric 94.8 kg +0000 weight_standard weight_standard 209 lb +0000 BP_diastolic BP_diastolic 77 mm[H g] +0000 BP_systolic BP_systolic 109 mm[Hg] +0000 heart_rate heart_rate 63 /min +0000 respiration_rate respiration_rate 18 /min +0000 temperature_metric temperature_metric 37 C +0000 temperature_standard temperature_standard 9 8.6 F
[2022-01-16 06:54] LABS: BILIRUBIN,URINE NEGATIVE (NEGATIVE); GLUCOSE, URINE (UA) NEGATIVE (NEGATIVE); KETONES,URINE (UA) NEGATIVE (NEGATIVE); LEUKOCYTE ESTERASE, URINE NEGATIVE (NEGATIVE); NITRITE,URINE NEGATIVE (NEGATIVE); OCCULT BLOOD,URINE NEGATIVE (NEGATIVE); PROTEIN,URINE NEGATIVE (NEGATIVE); UROBILINOGEN,URINE 0.2 (NORMAL) E.U./dL (NORMAL)
[2022-01-16 07:01] LABS: CLARITY,URINE CLEAR (CLEAR)
[2022-01-16 19:59] LABS: MUDS CUTOFF CONCENTRATIONS CUTOFF CONC BELOW:
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
[2022-01-16 20:12] LABS: AMPHETAMINE SCREEN,URINE NEGATIVE (NEGATIVE); BARBITURATE SCREEN,UR NEGATIVE (NEGATIVE); BENZODIAZEPINES SCREEN, URINE NEGATIVE (NEGATIVE); COCAINE SCREEN URINE NEGATIVE (NEGATIVE); METHADONE SCREEN, URINE NEGATIVE (NEGATIVE); METHAMPHETAMINES SCREEN, URINE NEGATIVE (NEGATIVE); OPIATE SCREEN, URINE NEGATIVE (NEGATIVE); OXYCODONE SCREEN, URINE NEGATIVE (NEGATIVE); PROPOXYPHENE SCREEN, URINE NEGATIVE (NEGATIVE); THC CANNABINOID SCREEN, URINE NEGATIVE (NEGATIVE); TRICYCLIC ANTIDEPRESSANT,URINE NEGATIVE (NEGATIVE)
[2022-01-16] MEDS: traZODone 50 MG TABLET PO SCH (20:39)
--- NOTE | 2022-01-17 07:45 | ED Physician Documentation ---
ED Addendum - Addendum Addendum: No issues with patient today. TEST ANALYST working on placement.
[2022-01-17] MEDS: MEMANTINE 5 MG TABLET PO SCH (09:14)
[2022-01-17] MEDS: DONEPEZIL 5 MG TABLET PO SCH (09:14)
[2022-01-17] MEDS: traZODone 50 MG TABLET PO SCH (20:55)
[2022-01-18] MEDS: DONEPEZIL 5 MG TABLET PO SCH (09:17)
[2022-01-18] MEDS: MEMANTINE 5 MG TABLET PO SCH (09:17)
--- NOTE | 2022-01-18 17:50 | ED Physician Documentation ---
ED Addendum - Addendum Addendum: 01/18/22 17:49Social work talked with the patient's brother and met with the patient. Apparently there is issues the patient has wandering from the house and poor memory and his brother is unable to continue caring for him in a feeling safe fashion. However the brother needs to be applying for guardianship. Social work talked with him about the paperwork that is necessary. This sounds like it may be a long process. The patient does not have any complaints here in the ER today. Will need to look at daily medication for him presuming a likely multiple day stay.
[2022-01-18] MEDS: traZODone 50 MG TABLET PO SCH (20:40)
[2022-01-19] MEDS: DONEPEZIL 5 MG TABLET PO SCH (09:06)
[2022-01-19] MEDS: MEMANTINE 5 MG TABLET PO SCH (09:06)
--- NOTE | 2022-01-19 11:23 | ED Physician Documentation ---
ED Addendum - Addendum Addendum: 01/19/22 11:23The patient was comfortable. He was reading a book when I went in to see him. He had no complaints. He states he had a good breakfast. He is continuing usual medicines. No reports of problems overnight any reportedly slept.
[2022-01-19] MEDS: traZODone 50 MG TABLET PO SCH (20:42)
[2022-01-20] MEDS ORDERED: QUEtiapine 25 MG TABLET PO STA (01:06)
[2022-01-20] MEDS: DONEPEZIL 5 MG TABLET PO SCH (08:58)
[2022-01-20] MEDS: MEMANTINE 5 MG TABLET PO SCH (08:58)
--- NOTE | 2022-01-20 17:42 | ED Physician Documentation ---
ED Addendum - Addendum Addendum: 01/20/22 17:41 The patient had an uneventful day in the emergency department today. He ambulated to and from the bathroom and took food and water, as well as his medications. He had no behavioral issues. His vital signs continue to be stable. He continues to be followed by social work with the end goal of finding permanent placement. No acute issues today.
[2022-01-20] MEDS: traZODone 50 MG TABLET PO SCH (20:50)
--- NOTE | 2022-01-21 09:07 | ED Physician Documentation ---
ED Addendum - Addendum Addendum: 01/21/22 09:07 Patient continues to await placement. No reported issues overnight.
[2022-01-21] MEDS: MEMANTINE 5 MG TABLET PO SCH (09:50)
[2022-01-21] MEDS: DONEPEZIL 5 MG TABLET PO SCH (09:50)
[2022-01-21] MEDS: traZODone 50 MG TABLET PO SCH (20:54)
[2022-01-22] MEDS: DONEPEZIL 5 MG TABLET PO SCH (09:04)
[2022-01-22] MEDS: MEMANTINE 5 MG TABLET PO SCH (09:04)
--- NOTE | 2022-01-22 13:35 | ED Physician Documentation ---
ED Addendum - Addendum Addendum: 01/22/22 13:34 No acute events on my shift. He is calm and cooperative. Ambulating himself to the bathroom. Still awaiting placement.
[2022-01-22] MEDS: traZODone 50 MG TABLET PO SCH (20:41)
[2022-01-23] MEDS: DONEPEZIL 5 MG TABLET PO SCH (08:58)
[2022-01-23] MEDS: MEMANTINE 5 MG TABLET PO SCH (08:59)
[2022-01-23] MEDS: traZODone 50 MG TABLET PO SCH (20:43)
[2022-01-24] MEDS: DONEPEZIL 5 MG TABLET PO SCH (09:18)
[2022-01-24] MEDS: MEMANTINE 5 MG TABLET PO SCH (09:18)
--- NOTE | 2022-01-24 17:44 | ED Physician Documentation ---
ED Addendum - Addendum Addendum: 01/24/22 17:43 No substantive changes on my shift today. He comes out of the room once in a while but seems calm and cooperative.
[2022-01-24] MEDS: traZODone 50 MG TABLET PO SCH (20:40)
[2022-01-25] MEDS: MEMANTINE 5 MG TABLET PO SCH (11:27)
[2022-01-25] MEDS: DONEPEZIL 5 MG TABLET PO SCH (11:27)
--- NOTE | 2022-01-25 12:55 | ED Physician Documentation ---
ED Addendum - Addendum Addendum: 01/25/22 12:54No reports of problems from the patient on change of shift from the overnight physician. Nursing notes show no acute problems. Briefly went and talked with the patient and he did not have any particular complaints. He continues with usual medications and diet. No social work note as yet today. Will review later.
[2022-01-25] MEDS: traZODone 50 MG TABLET PO SCH (20:49)
[2022-01-26] MEDS: DONEPEZIL 5 MG TABLET PO SCH (08:12)
[2022-01-26] MEDS: MEMANTINE 5 MG TABLET PO SCH (08:12)
[2022-01-26] MEDS ORDERED: NAPROXEN 250 MG TABLET PO STA (12:11)
--- NOTE | 2022-01-26 12:15 | ED Physician Documentation ---
ED Addendum - Addendum Addendum: 01/26/22 12:11 Review of the nursing notes and meeting with the patient. He had an uneventful night. He did complain of some lateral left ankle pain without any apparent injury. Nursing notes noted some redness and swelling in the area. The patient does not have any history of gout that he is aware. He has poor memory but states he believes the ankle has been hurting just the past day overnight. On exam there is some redness and swelling and warmth over the lateral malleolus. No skin sores in that area. No pain with inversion stress testing. There is some scaling of skin on the bottom of the foot but no signs of open sores or infection. Consideration may be gout or inflammatory arthritis. I do not see an impetus for tapping the joint as we can treated empirically with anti-inflammatories. It does not look infected. Will get an xray to evaluate however. 01/26/22 12:15
--- NOTE | 2022-01-26 12:43 | XRAY Report ---
PROCEDURE: Ankle 3 View LT INDICATIONS: lateral ankle pain and swelling TECHNIQUE: 3 views of the ankle were acquired. COMPARISON: None FINDINGS: Bones: No fractures or dislocations. Ankle mortise is normally aligned. No suspicious bony lesions . Mild periarticular osteophyte formation at the tibiotalar joint. Soft tissues: No tibiotalar joint effusion. Achilles tendon appears normal. IMPRESSION: Osteoarthritis. No acute fracture. No osseous lesion. If symptoms and/or clinical suspic ion for pathology continue, further assessment with repeat plain films, or advanced imaging (e.g., CT , MRI, or bone scan) is recommended for further assessment. Reviewed by: Ana Lilia Webster MD on 01/26/2022 12:41 PM PDT Approved by: Ana Lilia Webster MD on 01/26/2022 12:41 PM PDT Station ID: [id number]
[2022-01-26 13:15] LABS: CALCIUM 9.1 mg/dL (8.5-10.3); CREATININE 1.4 mg/dL (0.6-1.2); POTASSIUM 3.8 mmol/L (3.5-5.0); URIC ACID 7.7 mg/dL (2.6-7.2)
[2022-01-26] MEDS: NAPROXEN 250 MG TABLET PO SCH (21:50)
[2022-01-26] MEDS: traZODone 50 MG TABLET PO SCH (21:50)
[2022-01-27] MEDS: MEMANTINE 5 MG TABLET PO SCH (08:29)
[2022-01-27] MEDS: DONEPEZIL 5 MG TABLET PO SCH (08:29)
[2022-01-27] MEDS: NAPROXEN 250 MG TABLET PO SCH ×2 (08:29→21:37)
[2022-01-27] MEDS: traZODone 50 MG TABLET PO SCH (21:37)
[2022-01-28] MEDS: MEMANTINE 5 MG TABLET PO SCH (11:05)
[2022-01-28] MEDS: NAPROXEN 250 MG TABLET PO SCH ×2 (11:05→21:00)
[2022-01-28] MEDS: DONEPEZIL 5 MG TABLET PO SCH (11:05)
--- NOTE | 2022-01-28 14:59 | ED Physician Documentation ---
ED Addendum - Addendum Addendum: 01/28/22 17:00 Patient remains in the emergency department awaiting placement. No acute events During my shift. He has been ambulating. He remains calm and cooperative.
[2022-01-28] MEDS: traZODone 50 MG TABLET PO SCH (21:00)
[2022-01-29] MEDS: MEMANTINE 5 MG TABLET PO SCH (08:23)
[2022-01-29] MEDS: DONEPEZIL 5 MG TABLET PO SCH (08:23)
[2022-01-29] MEDS: NAPROXEN 250 MG TABLET PO SCH ×2 (08:23→20:30)
--- NOTE | 2022-01-29 10:10 | ED Physician Documentation ---
ED Addendum - Addendum Addendum: 01/29/22 17:30 No acute events during my shift. Pt calm and cooperative.
[2022-01-29] MEDS: traZODone 50 MG TABLET PO SCH (20:30)
[2022-01-30] MEDS: NAPROXEN 250 MG TABLET PO SCH ×2 (08:02→21:24)
[2022-01-30] MEDS: MEMANTINE 5 MG TABLET PO SCH (08:02)
[2022-01-30] MEDS: DONEPEZIL 5 MG TABLET PO SCH (08:02)
[2022-01-30] MEDS: traZODone 50 MG TABLET PO SCH (21:24)
[2022-01-31] MEDS: MEMANTINE 5 MG TABLET PO SCH (09:15)
[2022-01-31] MEDS: DONEPEZIL 5 MG TABLET PO SCH (09:15)
[2022-01-31] MEDS: traZODone 50 MG TABLET PO SCH (21:17)
[2022-02-01] MEDS: MEMANTINE 5 MG TABLET PO SCH (09:28)
[2022-02-01] MEDS: DONEPEZIL 5 MG TABLET PO SCH (09:28)
[2022-02-01] MEDS: traZODone 50 MG TABLET PO SCH (21:07)
[2022-02-02] MEDS: DONEPEZIL 5 MG TABLET PO SCH (09:47)
[2022-02-02] MEDS: MEMANTINE 5 MG TABLET PO SCH (09:47)
[2022-02-02] MEDS: traZODone 50 MG TABLET PO SCH (21:07)
--- NOTE | 2022-02-02 21:51 | ED Physician Documentation ---
ED Addendum - Addendum Addendum: 02/02/22 21:49 Patient calm and cooperative on my shift. No issues - still waiting on placement.
[2022-02-03] MEDS: DONEPEZIL 5 MG TABLET PO SCH (09:07)
[2022-02-03] MEDS: MEMANTINE 5 MG TABLET PO SCH (09:07)
--- NOTE | 2022-02-03 17:19 | ED Physician Documentation ---
ED Addendum - Addendum Addendum: 02/03/22 17:18And the patient did not have any particular complaints when I talked to him this morning. He had been eating okay. Usual medications. He has been comfortable in his room. I talked with social work today and she did not have any advancement in the plan. She is still waiting phone call from the state regarding guardianship etc. Continue with current plan.
[2022-02-03] MEDS: traZODone 50 MG TABLET PO SCH (20:33)
[2022-02-04] MEDS: DONEPEZIL 5 MG TABLET PO SCH (08:00)
[2022-02-04] MEDS: MEMANTINE 5 MG TABLET PO SCH (08:00)
--- NOTE | 2022-02-04 10:59 | ED Physician Documentation ---
ED Addendum - Addendum Addendum: 02/04/22 10:57 The patient was ambulatory awake and alert. He did not have any particular complaints and said he was feeling okay this morning. No change in his regimen of medications and diet. Nursing staff did not have any noted issues. I do not anticipate much environmental change analyst the weekend as the state offices are closed and we are still pending information and movement from [facility] governmental offices regarding guardianship. 02/04/22 10:59
[2022-02-04] MEDS: traZODone 50 MG TABLET PO SCH (20:10)
--- NOTE | 2022-02-05 07:50 | ED Physician Documentation ---
ED Addendum - Addendum Addendum: 02/05/22 07:49 The patient told nursing he would like to talk with the physician as he was just "not feeling well". The nurse relayed this to me in after few minutes I went in to check on him and he is sleeping at this point so I will let him continue resting and see him a little bit later this morning. He appears to breathing unlabored.
[2022-02-05] MEDS ORDERED: ACETAMINOPHEN 325 MG TABLET PO STA (08:16)
[2022-02-05] MEDS ORDERED: MECLIZINE 12.5 MG TABLET PO STA (08:17)
[2022-02-05] MEDS: DONEPEZIL 5 MG TABLET PO SCH (08:26)
[2022-02-05] MEDS: MEMANTINE 5 MG TABLET PO SCH (08:26)
[2022-02-05 09:23] LABS: B. PARAPERTUSSIS- RESP PCR PAN NOT DETECTED; B. PERTUSSIS- RESP PCR PANEL NOT DETECTED; C. PNEUMONIAE- RESP PCR PANEL NOT DETECTED; CORONAVIRUS 229E-RESP PCR NOT DETECTED; CORONAVIRUS HKU1-RESP PCR NOT DETECTED; CORONAVIRUS NL63-RESP PCR NOT DETECTED; CORONAVIRUS OC43-RESP PCR NOT DETECTED; HUMAN METAPNEUMOVIRUS NOT DETECTED; INFLUENZA A- RESP PCR PANEL NOT DETECTED; INFLUENZA B - RESP PCR PANEL NOT DETECTED; M. PNEUMONIAE- RESP PCR PANEL NOT DETECTED; PARAINFLUENZA VIRUS 1 NOT DETECTED; PARAINFLUENZA VIRUS 2 NOT DETECTED; PARAINFLUENZA VIRUS 3 NOT DETECTED; PARAINFLUENZA VIRUS 4 NOT DETECTED; RHINOVIRUS/ENTEROVIRUS NOT DETECTED; RSV- RESP PCR PANEL NOT DETECTED; SARS-CoV-2 -RESP PCR PANEL NOT DETECTED
[2022-02-05] MEDS: traZODone 50 MG TABLET PO SCH (19:55)
--- NOTE | 2022-02-06 09:06 | ED Physician Documentation ---
ED Addendum - Addendum Addendum: 02/06/22 09:05 The patient is feeling well this morning. His malaise and mild headache from yesterday had resolved with just some Tylenol. His respiratory panel was negative. He seems well today without any particular complaints. I presume social work will meet with him again today and try to contact the's state agencies regarding the guardianship issue. I will review social work notes later.
[2022-02-06] MEDS: MEMANTINE 5 MG TABLET PO SCH (09:34)
[2022-02-06] MEDS: DONEPEZIL 5 MG TABLET PO SCH (09:34)
[2022-02-06] MEDS: traZODone 50 MG TABLET PO SCH (20:19)
[2022-02-07] MEDS: MEMANTINE 5 MG TABLET PO SCH (09:25)
[2022-02-07] MEDS: DONEPEZIL 5 MG TABLET PO SCH (09:25)
--- NOTE | 2022-02-07 13:36 | ED Physician Documentation ---
ED Addendum - Addendum Addendum: 02/07/22 13:36 Patient continues to board in the emergency department. He has been without behavioral disruption. He denies a headache today as he had a few days ago. Social work continues to evaluate the patient pending placement and guardianship.
[2022-02-07] MEDS: traZODone 50 MG TABLET PO SCH (20:36)
[2022-02-08] MEDS: DONEPEZIL 5 MG TABLET PO SCH (09:11)
[2022-02-08] MEDS: MEMANTINE 5 MG TABLET PO SCH (09:11)
[2022-02-08] MEDS: traZODone 50 MG TABLET PO SCH (21:38)
[2022-02-09] MEDS: MEMANTINE 5 MG TABLET PO SCH (09:49)
[2022-02-09] MEDS: DONEPEZIL 5 MG TABLET PO SCH (09:49)
--- NOTE | 2022-02-09 12:21 | ED Physician Documentation ---
ED Addendum - Addendum Addendum: 02/09/22 12:20 Patient continues to board in the emergency department. Social work continues to work with [employer] in order to obtain appropriate guardianship paperwork. He is intermittently up out of bed. Sometimes interactive and talking with staff or his roommate. He has been hemodynamically stable without fevers. Tolerating a diet and has not have any disruptive or behavioral outbursts
[2022-02-09] MEDS: traZODone 50 MG TABLET PO SCH (20:27)
[2022-02-10] MEDS: MEMANTINE 5 MG TABLET PO SCH (10:07)
[2022-02-10] MEDS: DONEPEZIL 5 MG TABLET PO SCH (10:07)
--- NOTE | 2022-02-10 12:29 | ED Physician Documentation ---
ED Addendum - Addendum Addendum: 02/10/22 12:28I talked briefly with the patient this morning. He had no particular complaints. He is still boarding here pending issues with executive secretary ship and state paperwork. Anticipate longer term unfortunately. See social work notes.
[2022-02-10] MEDS: traZODone 50 MG TABLET PO SCH (20:36)
[2022-02-11] MEDS: MEMANTINE 5 MG TABLET PO SCH (09:53)
[2022-02-11] MEDS: DONEPEZIL 5 MG TABLET PO SCH (09:53)
--- NOTE | 2022-02-11 13:16 | ED Physician Documentation ---
ED Addendum - Addendum Addendum: 02/11/22 13:15 Met briefly with the patient who appears interactive as usual. No particular complaints. He remains boarding here still over issues of guardianship and power of wire spooler. No particular change in medications diet or activity.
[2022-02-11] MEDS: traZODone 50 MG TABLET PO SCH (20:22)
[2022-02-12] MEDS: DONEPEZIL 5 MG TABLET PO SCH (09:05)
[2022-02-12] MEDS: MEMANTINE 5 MG TABLET PO SCH (09:06)
--- NOTE | 2022-02-12 12:40 | ED Physician Documentation ---
ED Addendum - Addendum Addendum: 02/12/22 12:40 No interval change from yesterday. Still boarding pending guardianship etc. He was up and walking and appeared well. He did not have any complaints when asked. Essentially no change in plan at this point being Sunday there shortly will be any movement.
[2022-02-12] MEDS: traZODone 50 MG TABLET PO SCH (20:53)
--- NOTE | 2022-02-13 09:17 | ED Physician Documentation ---
ED Addendum - Addendum Addendum: 02/13/22 09:15 Seen and evaluated in the ED. No changes from prior, no new complaints. Pending placement
[2022-02-13] MEDS: DONEPEZIL 5 MG TABLET PO SCH (10:11)
[2022-02-13] MEDS: MEMANTINE 5 MG TABLET PO SCH (10:11)
[2022-02-13] MEDS: traZODone 50 MG TABLET PO SCH (20:38)
--- NOTE | 2022-02-14 09:57 | ED Physician Documentation ---
ED Addendum - Addendum Addendum: 02/14/22 09:57 Patient seen and examined in the emergency department. No changes from prior. Patient is calm and cooperative, denies complaints. Pending placement.
[2022-02-14] MEDS: MEMANTINE 5 MG TABLET PO SCH (09:58)
[2022-02-14] MEDS: DONEPEZIL 5 MG TABLET PO SCH (09:58)
[2022-02-14] MEDS: traZODone 50 MG TABLET PO SCH (21:05)
--- NOTE | 2022-02-15 07:33 | ED Physician Documentation ---
ED Addendum - Addendum Addendum: 02/15/22 07:33 Patient seen and evaluated in the emergency department. No change from prior. Hemodynamically stable, denies any complaints today. Still pending placement.
[2022-02-15] MEDS: MEMANTINE 5 MG TABLET PO SCH (09:46)
[2022-02-15] MEDS: DONEPEZIL 5 MG TABLET PO SCH (09:46)
[2022-02-15] MEDS: traZODone 50 MG TABLET PO SCH (20:53)
[2022-02-16] MEDS: DONEPEZIL 5 MG TABLET PO SCH (08:38)
[2022-02-16] MEDS: MEMANTINE 5 MG TABLET PO SCH (08:38)
--- NOTE | 2022-02-16 16:47 | ED Physician Documentation ---
ED Addendum - Addendum Addendum: 02/16/22 16:46 Patient continues to board here in the emergency department. He has been up and ambulatory. Vital signs without acute worrisome findings. Social work continues to work on guardianship paperwork which seems to be the major roadblock and nadine to longer place treatment and evaluation
--- NOTE | 2022-02-16 19:34 | ED Physician Documentation ---
ED Addendum - Addendum Addendum: 02/16/22 19:33 The patient was signed out to me at change of shift, continuing to pend placement in an assisted living facility or adult family home by social work. The patient's girlfriend did show up in the emergency department for the first time, stating she did not know that the patient was here. She stated that the patient's brother had just informed her that the patient was here. The patient seemed very happy to see his girlfriend and vice versa. However, before high school social studies teacher could come to talk to the girlfriend, she left the emergency department. Otherwise, the patient had an uneventful day. Social work will try to reach out to the girlfriend tomorrow.
[2022-02-16] MEDS: traZODone 50 MG TABLET PO SCH (21:01)
[2022-02-17] MEDS: MEMANTINE 5 MG TABLET PO SCH (09:09)
[2022-02-17] MEDS: DONEPEZIL 5 MG TABLET PO SCH (09:09)
--- NOTE | 2022-02-17 15:29 | ED Physician Documentation ---
ED Addendum - Addendum Addendum: 02/17/22 15:29 No reported issues overnight. Patient is still awaiting placement. Social work is continuing to work on placement.
[2022-02-17] MEDS: traZODone 50 MG TABLET PO SCH (20:38)
[2022-02-18] MEDS: MEMANTINE 5 MG TABLET PO SCH (10:24)
[2022-02-18] MEDS: DONEPEZIL 5 MG TABLET PO SCH (10:24)
--- NOTE | 2022-02-18 13:24 | ED Physician Documentation ---
ED Addendum - Addendum Addendum: 02/18/22 13:23 The patient remains boarding in the ER pending further clarification of legal considerations. I met with him briefly and he did not have any particular complaints for the day. We will continue with current diet and medications. No expected change in disposition over the weekend as no facilities have contacted and social work is not here over the weekend.
[2022-02-18] MEDS: traZODone 50 MG TABLET PO SCH (21:04)
[2022-02-19] MEDS: MEMANTINE 5 MG TABLET PO SCH (09:23)
[2022-02-19] MEDS: DONEPEZIL 5 MG TABLET PO SCH (09:23)
--- NOTE | 2022-02-19 12:22 | ED Physician Documentation ---
ED Addendum - Addendum Addendum: 02/19/22 12:21 Met briefly with the patient who did not have any particular complaints today. He maintains on current diet and medications. He is still boarding awaiting further progression on legal issues etc.
[2022-02-19] MEDS ORDERED: ACETAMINOPHEN 325 MG TABLET PO STA (19:46)
[2022-02-19] MEDS: traZODone 50 MG TABLET PO SCH (20:17)
[2022-02-20] MEDS: DONEPEZIL 5 MG TABLET PO SCH (09:16)
[2022-02-20] MEDS: MEMANTINE 5 MG TABLET PO SCH (09:16)
[2022-02-20] MEDS ORDERED: LORazepam 1 MG TABLET PO STA (14:47)
--- NOTE | 2022-02-20 17:19 | ED Physician Documentation ---
ED Addendum - Addendum Addendum: 02/20/22 17:19 Emeka seems actually slightly more interactive today to me. Coming out of his room more but not agitated, mostly friendly for the most part. Current plan is that the guardianship process is still being undertaken which will take a prolonged period of time.
[2022-02-20] MEDS: traZODone 50 MG TABLET PO SCH (20:38)
[2022-02-21] MEDS: MEMANTINE 5 MG TABLET PO SCH (10:01)
[2022-02-21] MEDS: DONEPEZIL 5 MG TABLET PO SCH (10:01)
--- NOTE | 2022-02-21 16:49 | ED Physician Documentation ---
ED Addendum - Addendum Addendum: 02/21/22 16:49 No notable change. The patient is ambulatory at times. He is otherwise interacting baseline. No need for changes in diet or medications at this time. No reported problems on overnight nursing notes.
[2022-02-21] MEDS: traZODone 50 MG TABLET PO SCH (21:40)
[2022-02-22] MEDS: DONEPEZIL 5 MG TABLET PO SCH (09:17)
[2022-02-22] MEDS: MEMANTINE 5 MG TABLET PO SCH (09:17)
--- NOTE | 2022-02-22 18:19 | ED Physician Documentation ---
ED Addendum - Addendum Addendum: 02/22/22 18:19 I met briefly with the patient today who did not have any particular complaints. He is maintaining on regular medications and diet. No change in therapy indicated at this time.
[2022-02-22] MEDS: traZODone 50 MG TABLET PO SCH (20:34)
[2022-02-23] MEDS: DONEPEZIL 5 MG TABLET PO SCH (09:39)
[2022-02-23] MEDS: MEMANTINE 5 MG TABLET PO SCH (09:39)
--- NOTE | 2022-02-23 10:12 | ED Physician Documentation ---
ED Addendum - Addendum Addendum: 02/23/22 10:11 The patient remains essentially the same. He ate breakfast. No particular complaints when I talked to him briefly. Moves all extremities well. No apparent pains. No leg swelling. No reported problems from night staff and supposedly slept okay. Still awaiting power of health care attorney and disposition issues. Anticipate boarding here still long-term. No apparent criteria for swing bed etc.
[2022-02-23] MEDS: traZODone 50 MG TABLET PO SCH (20:43)
[2022-02-24] MEDS: DONEPEZIL 5 MG TABLET PO SCH (08:44)
[2022-02-24] MEDS: MEMANTINE 5 MG TABLET PO SCH (08:44)
--- NOTE | 2022-02-24 14:58 | ED Physician Documentation ---
ED Addendum - Addendum Addendum: 02/24/22 14:56 The patient is without any particular complaints. He did seem a little sad as one of the other boarding patients he was in adjacent room in the ER found placement yesterday and fall feels a bit more alone. He is still ambulatory without particular complaint. At this point no apparent need in change of diet or medications. Social work continues to work on his case.
[2022-02-24] MEDS: traZODone 50 MG TABLET PO SCH (21:55)
[2022-02-25] MEDS: MEMANTINE 5 MG TABLET PO SCH (08:48)
[2022-02-25] MEDS: DONEPEZIL 5 MG TABLET PO SCH (08:48)
--- NOTE | 2022-02-25 08:53 | ED Physician Documentation ---
ED Addendum - Addendum Addendum: 02/25/22 08:51 Evaluated Emeka briefly this morning. He was feeling okay and not baseline. Main concern at the moment was that he did not get syrup with his morning breakfast and was asking politely for some. Otherwise he has slapped and vented his room and does not have any particular complaints this morning. We will maintain current diet and medications. Unfortunately not very good activity level out of the ER but he does get up and walk around frequently and often actually stands a good part of the day. He likes to watch what is going on in the hallway. No apparent forward movement on paperwork in prison issues or placement.
[2022-02-25] MEDS: traZODone 50 MG TABLET PO SCH (22:45)
[2022-02-26] MEDS: DONEPEZIL 5 MG TABLET PO SCH (08:50)
[2022-02-26] MEDS: MEMANTINE 5 MG TABLET PO SCH (08:50)
[2022-02-26] MEDS: traZODone 50 MG TABLET PO SCH (21:08)
[2022-02-27] MEDS: MEMANTINE 5 MG TABLET PO SCH (10:33)
[2022-02-27] MEDS: DONEPEZIL 5 MG TABLET PO SCH (10:34)
--- NOTE | 2022-02-27 15:50 | ED Physician Documentation ---
ED Addendum - Addendum Addendum: 02/27/22 15:50 Subjective: Patient is demented and offers no new complaints Objective: He appears well coloring in the room and watching movies. Assessment: Demented and unable to care for self Plan: Social work still working on guardianship with the brother, my understanding is until that is done we will be unable to disposition him.
[2022-02-27] MEDS: traZODone 50 MG TABLET PO SCH (21:02)
[2022-02-28] MEDS: MEMANTINE 5 MG TABLET PO SCH (08:21)
[2022-02-28] MEDS: DONEPEZIL 5 MG TABLET PO SCH (08:21)
--- NOTE | 2022-02-28 13:01 | ED Physician Documentation ---
ED Addendum - Addendum Addendum: 02/28/22 13:01 I met and talked briefly with the patient today. He did not have any particular complaints. He has been doing okay on current diet and red medications. No noted change needed.
[2022-02-28] MEDS: traZODone 50 MG TABLET PO SCH (20:47)
--- NOTE | 2022-03-01 09:44 | ED Physician Documentation ---
ED Addendum - Addendum Addendum: 03/01/22 09:44 Patient seen and examined on morning rounds. No change in patient's status, he denies complaints. Still pending placement.
[2022-03-01] MEDS: MEMANTINE 5 MG TABLET PO SCH (10:00)
[2022-03-01] MEDS: DONEPEZIL 5 MG TABLET PO SCH (10:00)
[2022-03-01] MEDS: traZODone 50 MG TABLET PO SCH (21:07)
[2022-03-02] MEDS: DONEPEZIL 5 MG TABLET PO SCH (09:27)
[2022-03-02] MEDS: MEMANTINE 5 MG TABLET PO SCH (09:27)
[2022-03-02] MEDS: traZODone 50 MG TABLET PO SCH (21:17)
[2022-03-03] MEDS: MEMANTINE 5 MG TABLET PO SCH (08:53)
[2022-03-03] MEDS: DONEPEZIL 5 MG TABLET PO SCH (08:53)
--- NOTE | 2022-03-03 15:16 | ED Physician Documentation ---
ED Addendum - Addendum Addendum: 03/03/22 15:15No apparent interval change from yesterday or last night. He remains interactive. I met briefly with him he had no particular complaints. To remain on current diet, medications. He is ambulatory in and around the room so that is good and would be nice if we could actually augment his physical activity movement. Hard to do in the ER.
[2022-03-03] MEDS: traZODone 50 MG TABLET PO SCH (21:56)
--- NOTE | 2022-03-04 08:47 | ED Physician Documentation ---
ED Addendum - Addendum Addendum: 03/04/22 08:46 The patient is up and ambulating a bit. He is just had breakfast. No particular complaints. I do not imagine any movement on disposition over the weekend without social work etc. He continues to board long-term.
[2022-03-04] MEDS: MEMANTINE 5 MG TABLET PO SCH (09:54)
[2022-03-04] MEDS: DONEPEZIL 5 MG TABLET PO SCH (09:54)
[2022-03-04] MEDS: traZODone 50 MG TABLET PO SCH (21:04)
[2022-03-05] MEDS: MEMANTINE 5 MG TABLET PO SCH (11:46)
[2022-03-05] MEDS: DONEPEZIL 5 MG TABLET PO SCH (11:46)
[2022-03-05] MEDS: traZODone 50 MG TABLET PO SCH (20:48)
[2022-03-06] MEDS: DONEPEZIL 5 MG TABLET PO SCH (09:49)
[2022-03-06] MEDS: MEMANTINE 5 MG TABLET PO SCH (09:50)
[2022-03-06] MEDS: traZODone 50 MG TABLET PO SCH (22:26)
[2022-03-07] MEDS: DONEPEZIL 5 MG TABLET PO SCH (09:02)
[2022-03-07] MEDS: MEMANTINE 5 MG TABLET PO SCH (09:02)
[2022-03-07] MEDS ORDERED: LACTULOSE 10 GM /15 ML UDC PO STA (10:47)
[2022-03-07] MEDS: DOCUSATE SODIUM 100 MG CAPSULE PO SCH ×2 (11:13→20:53)
--- NOTE | 2022-03-07 11:44 | ED Physician Documentation ---
ED Addendum - Addendum Addendum: 03/07/22 11:43 Patient calm and cooperative on my shift, no acute complaints although at one point was telling the nurse that he was having trouble urinating. Bladder scan was done with only about 80 mL. It is unclear when his last bowel movement was so I ordered some lactulose and scheduled Colace.
[2022-03-07] MEDS ORDERED: polyethylene glycoL 3350 17 GM PACKET PO PRN (17:26)
--- NOTE | 2022-03-07 18:13 | XRAY Report ---
PROCEDURE: Abdomen 1 View X-Ray INDICATIONS: abd pain TECHNIQUE: One view of the abdomen acquired. COMPARISON: None. FINDINGS: Surgical changes and devices: None. Bowel: There is a paucity of small bowel gas. Colon is diffusely air-filled without significant diste ntion. There is apparent mild thickening of the haustral markings. Soft tissues: No suspicious abdominal calcifications. Visualized solid organ contours appear normal in size. Bones: No suspicious bony lesions. Mild degenerative changes in the spine. IMPRESSION: Nonspecific nonobstructive bowel gas pattern. Mild haustral thickening is suspicious for a nonspecifi c colitis. Reviewed by: Raman Domingo MD on 03/07/2022 6:12 PM PDT Approved by: Raman Domingo MD on 03/07/2022 6:12 PM PDT Station ID: [id number]
--- NOTE | 2022-03-07 18:29 | ED Physician Documentation ---
ED Addendum - Addendum Addendum: 03/07/22 18:29 I was called to the room to evaluate the patient for possible abdominal pain. When I entered the room he states the abdominal pain has resolved. Abdomen is soft, nontender nondistended. KUB was ordered. Possible nonspecific colitis. We will monitor for further pain, or other symptoms. Currently the patient is pain-free.
[2022-03-07] MEDS: traZODone 50 MG TABLET PO SCH (20:53)
[2022-03-08] MEDS: DOCUSATE SODIUM 100 MG CAPSULE PO SCH ×2 (08:44→20:47)
[2022-03-08] MEDS: DONEPEZIL 5 MG TABLET PO SCH (08:44)
[2022-03-08] MEDS: MEMANTINE 5 MG TABLET PO SCH (08:44)
[2022-03-08] MEDS: traZODone 50 MG TABLET PO SCH (20:47)
[2022-03-09] MEDS: DOCUSATE SODIUM 100 MG CAPSULE PO SCH ×2 (09:42→21:19)
[2022-03-09] MEDS: DONEPEZIL 5 MG TABLET PO SCH (09:42)
[2022-03-09] MEDS: MEMANTINE 5 MG TABLET PO SCH (09:42)
--- NOTE | 2022-03-09 18:29 | ED Physician Documentation ---
ED Addendum - Addendum Addendum: 03/09/22 18:28 The patient had an uneventful day today and appeared well, wandering out of his room frequently to converse with staff. He ate well and was without complaints. Social work continues to work on placement for the patient.
[2022-03-09] MEDS: traZODone 50 MG TABLET PO SCH (21:19)
[2022-03-10] MEDS: DOCUSATE SODIUM 100 MG CAPSULE PO SCH ×2 (09:02→20:54)
[2022-03-10] MEDS: DONEPEZIL 5 MG TABLET PO SCH (09:02)
[2022-03-10] MEDS: MEMANTINE 5 MG TABLET PO SCH (09:02)
[2022-03-10] MEDS: traZODone 50 MG TABLET PO SCH (20:54)
[2022-03-11] MEDS: MEMANTINE 5 MG TABLET PO SCH (08:51)
[2022-03-11] MEDS: DONEPEZIL 5 MG TABLET PO SCH (08:51)
[2022-03-11] MEDS: DOCUSATE SODIUM 100 MG CAPSULE PO SCH ×2 (08:51→21:03)
[2022-03-11] MEDS: traZODone 50 MG TABLET PO SCH (21:03)
[2022-03-12] MEDS: DONEPEZIL 5 MG TABLET PO SCH (09:10)
[2022-03-12] MEDS: MEMANTINE 5 MG TABLET PO SCH (09:10)
[2022-03-12] MEDS: DOCUSATE SODIUM 100 MG CAPSULE PO SCH ×2 (09:10→20:35)
[2022-03-12] MEDS: traZODone 50 MG TABLET PO SCH (20:35)
[2022-03-13] MEDS: DONEPEZIL 5 MG TABLET PO SCH (08:05)
[2022-03-13] MEDS: MEMANTINE 5 MG TABLET PO SCH (08:05)
[2022-03-13] MEDS: DOCUSATE SODIUM 100 MG CAPSULE PO SCH ×2 (08:05→20:51)
[2022-03-13] MEDS: traZODone 50 MG TABLET PO SCH (20:52)
[2022-03-14] MEDS: MEMANTINE 5 MG TABLET PO SCH (09:16)
[2022-03-14] MEDS: DONEPEZIL 5 MG TABLET PO SCH (09:16)
[2022-03-14] MEDS: DOCUSATE SODIUM 100 MG CAPSULE PO SCH ×2 (09:16→20:58)
--- NOTE | 2022-03-14 10:13 | ED Physician Documentation ---
ED Addendum - Addendum Addendum: 03/14/22 10:10 I did see the patient yesterday and had not put in the daily note. Subjective: The patient is without any complaint yesterday when I talked with him. Objective: The patient is awake alert and interacts at baseline. He does not appear in any distress. Walking around in his room and seems comfortable. Assessment: Dementia with poor self-care Plan: Still waiting on placement issues with the power of deputy county attorney and custody through the state. I met briefly with the patient again this morning: Subjective: The patient is without any complaint yesterday when I talked with him. Has been doing well with current diet. Objective: The patient is awake alert and interacts at baseline. He does not appear in any distress. He had just eaten and feels comfortable. Assessment: Dementia with poor self-care Plan: Still waiting on placement issues with the power of deputy county attorney and custody through the state. Can check weight weekly to ensure good apparent nutrition.
[2022-03-14] MEDS: traZODone 50 MG TABLET PO SCH (20:58)
[2022-03-15] MEDS: DOCUSATE SODIUM 100 MG CAPSULE PO SCH ×2 (09:54→21:02)
[2022-03-15] MEDS: DONEPEZIL 5 MG TABLET PO SCH (09:55)
[2022-03-15] MEDS: MEMANTINE 5 MG TABLET PO SCH (09:55)
[2022-03-15] MEDS: traZODone 50 MG TABLET PO SCH (21:02)
[2022-03-16] MEDS: DOCUSATE SODIUM 100 MG CAPSULE PO SCH ×2 (09:04→21:01)
[2022-03-16] MEDS: MEMANTINE 5 MG TABLET PO SCH (09:04)
[2022-03-16] MEDS: DONEPEZIL 5 MG TABLET PO SCH (09:04)
--- NOTE | 2022-03-16 11:49 | ED Physician Documentation ---
ED Addendum - Addendum Addendum: 03/16/22 11:47 Subjective: "I want to go home. I do not know why I am here. I have never done anything to hurt anybody." Objective: Patient appears well in his room. He is actively using a color book. He engages this provider easily in conversation. He has no specific concerns o r complaints at this time Though he continues to struggle with remaining in the emergency department and very much desires to be discharged home with his family. Vital signs are reviewed without any worrisome abnormalities. Per nursing staff he continues to tolerate his diet and eat well. There have been concerns that he may be losing weight therefore we have supplemented his mealtimes with sna cks. Assessment: Dementia with poor self-care Plan: Continuing to wait on appropriate guardianship paperwork to be completed before we can proceed with finding placement for this gentleman. It is likely that he will remain here in the emergency department for quite some time.
[2022-03-16] MEDS: traZODone 50 MG TABLET PO SCH (21:01)
[2022-03-17] MEDS: MEMANTINE 5 MG TABLET PO SCH (08:58)
[2022-03-17] MEDS: DOCUSATE SODIUM 100 MG CAPSULE PO SCH ×2 (08:58→21:05)
[2022-03-17] MEDS: DONEPEZIL 5 MG TABLET PO SCH (08:58)
[2022-03-17] MEDS: traZODone 50 MG TABLET PO SCH (21:05)
[2022-03-18] MEDS: DONEPEZIL 5 MG TABLET PO SCH (10:25)
[2022-03-18] MEDS: DOCUSATE SODIUM 100 MG CAPSULE PO SCH ×2 (10:25→21:22)
[2022-03-18] MEDS: MEMANTINE 5 MG TABLET PO SCH (10:25)
[2022-03-18] MEDS: traZODone 50 MG TABLET PO SCH (21:22)
[2022-03-19] MEDS: MEMANTINE 5 MG TABLET PO SCH (09:39)
[2022-03-19] MEDS: DOCUSATE SODIUM 100 MG CAPSULE PO SCH ×2 (09:39→21:48)
[2022-03-19] MEDS: DONEPEZIL 5 MG TABLET PO SCH (09:39)
[2022-03-19] MEDS: traZODone 50 MG TABLET PO SCH (21:48)
[2022-03-20] MEDS: DOCUSATE SODIUM 100 MG CAPSULE PO SCH ×2 (09:06→20:30)
[2022-03-20] MEDS: DONEPEZIL 5 MG TABLET PO SCH (09:06)
[2022-03-20] MEDS: MEMANTINE 5 MG TABLET PO SCH (09:06)
--- NOTE | 2022-03-20 09:51 | ED Physician Documentation ---
ED Addendum - Addendum Addendum: 03/20/22 09:49 Subjective: I talked briefly with the patient. He states he was having an okay day. He was standing near his doorway. He did not have any particular complaints when asked. Objective: He appears nourished and well hydrated. He is interacting at baseline with the short-term memory deficits but present in the moment. He is moving all extremities without any current limp. Unlabored breathing. Assessment: Persistent dementia and issues of placement for ongoing care. Plan: He is continuing to board apparently long-term at this point with still awaiting rectification of issues for custody and payment in placement.
[2022-03-20] MEDS: traZODone 50 MG TABLET PO SCH (20:30)
[2022-03-21] MEDS: MEMANTINE 5 MG TABLET PO SCH (09:09)
[2022-03-21] MEDS: DONEPEZIL 5 MG TABLET PO SCH (09:09)
[2022-03-21] MEDS: DOCUSATE SODIUM 100 MG CAPSULE PO SCH ×2 (09:09→20:59)
--- NOTE | 2022-03-21 16:28 | ED Physician Documentation ---
ED Addendum - Addendum Addendum: 03/21/22 16:27Subjective: The patient did not have any particular complaint. I talked with him briefly. He was having a okay day and had been doing some drawing. : Awake and conversant. No apparent distress. He is appearing well groomed and dressed today. Assessment: Boarding for placement due to dementia. Prolonged stay due to issues of guardianship and payment. Plan: Continue with current medications diet. Would be nice to have augmented activity but limited here in the ER.
[2022-03-21] MEDS: traZODone 50 MG TABLET PO SCH (20:59)
[2022-03-22] MEDS: DONEPEZIL 5 MG TABLET PO SCH (09:46)
[2022-03-22] MEDS: MEMANTINE 5 MG TABLET PO SCH (09:46)
[2022-03-22] MEDS: DOCUSATE SODIUM 100 MG CAPSULE PO SCH ×2 (09:46→20:41)
--- NOTE | 2022-03-22 17:36 | ED Physician Documentation ---
ED Addendum - Addendum Addendum: 03/22/22 17:35 Subjective: The patient did not have any particular complaint. I talked with him briefly. He was having a okay day and had been doing some drawing. : Awake and conversant. No apparent distress. He is appearing well groomed and dressed today. Assessment: Boarding for placement due to dementia. Prolonged stay due to issues of guardianship and payment. Plan: Continue with current medications diet. Would be nice to have augmented activity but limited here in the ER.
[2022-03-22] MEDS: traZODone 50 MG TABLET PO SCH (20:41)
[2022-03-23] MEDS: DONEPEZIL 5 MG TABLET PO SCH (08:49)
[2022-03-23] MEDS: MEMANTINE 5 MG TABLET PO SCH (08:49)
[2022-03-23] MEDS: DOCUSATE SODIUM 100 MG CAPSULE PO SCH ×2 (08:49→20:48)
--- NOTE | 2022-03-23 17:43 | ED Physician Documentation ---
ED Addendum - Addendum Addendum: 03/23/22 17:42 The patient was signed out to me at change of shift, continuing to pend placement. He had an uneventful night overnight and an uneventful day throughout the day today. Patient had no complaints. He continued to treads around the emergency department, eat meals, and make friendly conversation with the staff. Social work reports that they are continuing to wait the state to assign a guardian for this patient so that he can move forward with placement. The patient is signed out to the oncoming emergency physician at the end of my day shift.
[2022-03-23] MEDS: traZODone 50 MG TABLET PO SCH (20:48)
[2022-03-23] MEDS ORDERED: ACETAMINOPHEN 325 MG TABLET PO STA (21:28)
[2022-03-24] MEDS: DONEPEZIL 5 MG TABLET PO SCH (08:25)
[2022-03-24] MEDS: MEMANTINE 5 MG TABLET PO SCH (08:25)
[2022-03-24] MEDS: DOCUSATE SODIUM 100 MG CAPSULE PO SCH ×2 (08:25→21:05)
[2022-03-24] MEDS: traZODone 50 MG TABLET PO SCH (21:05)
[2022-03-25] MEDS: DONEPEZIL 5 MG TABLET PO SCH (08:31)
[2022-03-25] MEDS: MEMANTINE 5 MG TABLET PO SCH (08:31)
[2022-03-25] MEDS: DOCUSATE SODIUM 100 MG CAPSULE PO SCH ×2 (08:31→21:22)
--- NOTE | 2022-03-25 10:00 | ED Physician Documentation ---
ED Addendum - Addendum Addendum: 03/25/22 09:59The patient was without any particular complaints. He was conversant and interactive. Upon going in the room this morning he was watching a movie and seemed content. He does claim a bit of boredom. He is awake alert conversant without any apparent distress. Breathing is unlabored. Really has not had any recent lab work. Consider the potential of just spot checking some basic labs. Assessment: Dementia with problems on self-care. Guardianship issues and awaiti ng placement. Plan anticipate no real change in diet or activity or medications at this point.
[2022-03-25] MEDS: traZODone 50 MG TABLET PO SCH (21:22)
[2022-03-26 07:43] LABS: BASOPHILS % (AUTO) 0.7 %; EOSINOPHILS # (AUTO) 0.1 10^3/uL (0.0-0.7); EOSINOPHILS % (AUTO) 1.6 %; HCT - HEMATOCRIT 43.3 % (42.0-52.0); HGB - HEMOGLOBIN 14.9 g/dL (14.0-18.0); LYMPHOCYTES # (AUTO) 1.6 10^3/uL (1.5-3.5); LYMPHOCYTES % (AUTO) 27.9 %; MEAN CORPUSCULAR HEMOGLOBIN 31.5 pg (27.0-31.0); MEAN CORPUSCULAR HGB CONC 34.4 g/dL (32.0-36.0); MEAN CORPUSCULAR VOLUME 91.5 fL (80.0-94.0); MEAN PLATELET VOLUME 9.1 fL (7.4-11.4); MONOCYTES # (AUTO) 0.4 10^3/uL (0.0-1.0); MONOCYTES % (AUTO) 7.9 %; NEUTROPHILS # (AUTO) 3.4 10^3/uL (1.5-6.6); NEUTROPHILS % (AUTO) 61.4 %; PLT - PLATELET COUNT 245 10^3/uL (130-450); RED BLOOD COUNT 4.73 10^6/uL (4.70-6.10); RED CELL DISTRIBUTION WIDTH 12.6 % (12.0-15.0); WHITE BLOOD COUNT 5.6 x10^3/uL (4.8-10.8)
[2022-03-26 07:45] LABS: ALBUMIN 4.3 g/dL (3.2-5.5); ALBUMIN/GLOBULIN RATIO 1.8 (1.0-2.2); BILIRUBIN,TOTAL 1.2 mg/dL (0.2-1.0); CALCIUM 9.5 mg/dL (8.5-10.3); CREATININE 1.2 mg/dL (0.6-1.2); MAGNESIUM 2.2 mg/dL (1.7-2.8); POTASSIUM 4.4 mmol/L (3.5-5.0); TOTAL PROTEIN 6.7 g/dL (6.7-8.2)
[2022-03-26] MEDS: DOCUSATE SODIUM 100 MG CAPSULE PO SCH ×2 (10:16→22:25)
[2022-03-26] MEDS: DONEPEZIL 5 MG TABLET PO SCH (10:16)
[2022-03-26] MEDS: MEMANTINE 5 MG TABLET PO SCH (10:16)
--- NOTE | 2022-03-26 20:24 | ED Physician Documentation ---
ED Addendum - Addendum Addendum: 03/26/22 20:22Patient was standing in doorway when I greeted him. He said he was having a good morning. No particular complaints. He is alert and conversant. no apparent distress. Had breakfast this morning. Assessment: dementia with placement processing Plan: continue same diet, meds.
[2022-03-26] MEDS: traZODone 50 MG TABLET PO SCH (22:25)
[2022-03-27] MEDS: DOCUSATE SODIUM 100 MG CAPSULE PO SCH ×2 (12:01→20:30)
[2022-03-27] MEDS: DONEPEZIL 5 MG TABLET PO SCH (12:04)
[2022-03-27] MEDS: MEMANTINE 5 MG TABLET PO SCH (12:04)
--- NOTE | 2022-03-27 17:47 | ED Physician Documentation ---
ED Addendum - Addendum Addendum: 03/27/22 17:45 Subjective: The patient was sitting resting comfortably when I went in to talk to him. He was watching his fish in the fish tank. He had had breakfast without any problems. Objective: He is awake alert and conversant. No apparent distress. He appears groomed. Basic CBC and chemistry panel done this morning as a periodic check (it had been 2 months since prior labs) showed normal values with just a minimal elevation of lipase. Assessment: Dementia and poor self-care and placement Plan: Continue with current diet and activity and medications. Supposedly there is going to be some movement on the legal processing for athletic gear custodian in the near future and then hopefully facility placement can occur. 03/27/22 17:46
[2022-03-27] MEDS: traZODone 50 MG TABLET PO SCH (20:30)
[2022-03-28] MEDS: DONEPEZIL 5 MG TABLET PO SCH (09:46)
[2022-03-28] MEDS: DOCUSATE SODIUM 100 MG CAPSULE PO SCH ×2 (09:46→20:33)
[2022-03-28] MEDS: MEMANTINE 5 MG TABLET PO SCH (09:46)
--- NOTE | 2022-03-28 15:48 | ED Physician Documentation ---
ED Addendum - Addendum Addendum: 03/28/22 15:47 Patient reported sharp left-sided chest pain that hurt more when he pressed on it with his finger. The pain resolved after a few minutes. Nonradiating. Better when he was not pressing on the area, worse with palpation. EKG was performed at 1419. 64, sinus rhythm, normal axis. Low voltage in the inferior leads, no ST changes. Normal QRS. Normal ID. Appears to be likely musculoskeletal pain, not consistent with acute coronary syndrome. Patient is asymptomatic.
[2022-03-28] MEDS: traZODone 50 MG TABLET PO SCH (20:33)
[2022-03-29] MEDS: DOCUSATE SODIUM 100 MG CAPSULE PO SCH ×2 (09:30→20:55)
[2022-03-29] MEDS: DONEPEZIL 5 MG TABLET PO SCH (09:30)
[2022-03-29] MEDS: MEMANTINE 5 MG TABLET PO SCH (09:31)
--- NOTE | 2022-03-29 16:21 | ED Physician Documentation ---
ED Addendum - Addendum Addendum: 03/29/22 16:21 Seen and examined on morning rounds. Patient is awake, alert, no acute distress. No complaints today. Pending placement.
[2022-03-29] MEDS: traZODone 50 MG TABLET PO SCH (20:55)
[2022-03-30] MEDS: DONEPEZIL 5 MG TABLET PO SCH (09:26)
[2022-03-30] MEDS: DOCUSATE SODIUM 100 MG CAPSULE PO SCH (09:26)
[2022-03-30] MEDS: MEMANTINE 5 MG TABLET PO SCH (09:26)
--- NOTE | 2022-03-30 15:20 | ED Physician Documentation ---
ED Addendum - Addendum Addendum: 03/30/22 15:19 Subjective: The patient is without any discomfort. He is in his room with normal activity. Ate without any problems. Objective: No apparent distress. He is conversant and ambulatory. I do not see any social work notes. Reportedly there had been some movement or update on his [facility] ship. Assessment and: Dementia with placement issues Plan: Continue current diet treatments etc.
[2022-03-30] MEDS: traZODone 50 MG TABLET PO SCH (21:17)
[2022-03-31] MEDS: DONEPEZIL 5 MG TABLET PO SCH (09:48)
[2022-03-31] MEDS: MEMANTINE 5 MG TABLET PO SCH (09:48)
[2022-03-31] MEDS: traZODone 50 MG TABLET PO SCH (20:55)
--- NOTE | 2022-03-31 21:33 | ED Physician Documentation ---
ED Addendum - Addendum Addendum: 03/31/22 21:31 S: No new symptoms. ED nursing state court documents were dropped at the nurses station or such today. Presume Social Work will move to the next step. O: interacts pleasantly. ate meals okay. A: pending legal custody and placement P: boarding until disposition
[2022-04-01] MEDS: MEMANTINE 5 MG TABLET PO SCH (08:18)
[2022-04-01] MEDS: DONEPEZIL 5 MG TABLET PO SCH (08:18)
[2022-04-01] MEDS: traZODone 50 MG TABLET PO SCH (20:45)
[2022-04-02] MEDS: DONEPEZIL 5 MG TABLET PO SCH (11:20)
[2022-04-02] MEDS: MEMANTINE 5 MG TABLET PO SCH (11:21)
[2022-04-02] MEDS: traZODone 50 MG TABLET PO SCH (21:00)
[2022-04-03] MEDS: MEMANTINE 5 MG TABLET PO SCH (08:28)
[2022-04-03] MEDS: DONEPEZIL 5 MG TABLET PO SCH (08:28)
--- NOTE | 2022-04-03 18:05 | ED Physician Documentation ---
ED Addendum - Addendum Addendum: 04/03/22 18:04 Patient received a signout from outgoing physician, please see their do cumentation for further detail. Subjective: No acute events over the last 24-hour. Objective: Patient is well-appearing with no acute complaints, evaluated and found to be resting comfortably. Evaluation: Patient continuesTo board in the emergency department. Plan: Continue to board in the emergency department pending placement.
[2022-04-03] MEDS: traZODone 50 MG TABLET PO SCH (20:09)
[2022-04-04] MEDS: MEMANTINE 5 MG TABLET PO SCH (08:44)
[2022-04-04] MEDS: DONEPEZIL 5 MG TABLET PO SCH (08:44)
[2022-04-04] MEDS: traZODone 50 MG TABLET PO SCH (21:01)
[2022-04-05] MEDS: MEMANTINE 5 MG TABLET PO SCH (08:32)
[2022-04-05] MEDS: DONEPEZIL 5 MG TABLET PO SCH (08:32)
[2022-04-05] MEDS: traZODone 50 MG TABLET PO SCH (20:52)
[2022-04-06] MEDS: MEMANTINE 5 MG TABLET PO SCH (10:10)
[2022-04-06] MEDS: DONEPEZIL 5 MG TABLET PO SCH (10:10)
--- NOTE | 2022-04-06 12:56 | ED Physician Documentation ---
ED Addendum - Addendum Addendum: 04/06/22 12:53 Subjective: I met briefly with Emeka and talked to him. He was in no apparent distress. He showed me his DVD player in the movies he was watching. He does seem little bit bored. No particular complaints. Objective: He is awake and conversant. Walking in the room. He is operating his DVD player so can coordinate those. Poor short-term memory otherwise. Assessment: Continues boarding for placement with dementia. Plan: I will look and see if there is been any more recent social work notes regarding the update and timeline.
[2022-04-06] MEDS: traZODone 50 MG TABLET PO SCH (20:47)
[2022-04-07] MEDS: MEMANTINE 5 MG TABLET PO SCH (09:06)
[2022-04-07] MEDS: DONEPEZIL 5 MG TABLET PO SCH (09:06)
[2022-04-07] MEDS: traZODone 50 MG TABLET PO SCH (20:44)
[2022-04-08] MEDS: DONEPEZIL 5 MG TABLET PO SCH (08:44)
[2022-04-08] MEDS: MEMANTINE 5 MG TABLET PO SCH (08:44)
--- NOTE | 2022-04-08 10:05 | ED Physician Documentation ---
ED Addendum - Addendum Addendum: 04/08/22 10:04Subjective: The patient appears well and normal alertness. No complaints today. He is supposed to get a visit from a combat systems officer but has not had that as yet today. Objective: The patient is awake alert and can percent. He has unlabored breathing. Normal voice. Assessment: Awaiting placement for dementia and self-care Plan: The plan continues with establishment of guardianship and then placement. The patient is supposed to have a court visit or such by pediatric social worker person I believe today.
[2022-04-08] MEDS: traZODone 50 MG TABLET PO SCH (21:12)
[2022-04-09] MEDS: DONEPEZIL 5 MG TABLET PO SCH (09:01)
[2022-04-09] MEDS: MEMANTINE 5 MG TABLET PO SCH (09:01)
[2022-04-09] MEDS: traZODone 50 MG TABLET PO SCH (20:43)
[2022-04-10] MEDS: DONEPEZIL 5 MG TABLET PO SCH (09:14)
[2022-04-10] MEDS: MEMANTINE 5 MG TABLET PO SCH (09:14)
--- NOTE | 2022-04-10 16:08 | ED Physician Documentation ---
ED Addendum - Addendum Addendum: Patient is boarding in the emergency department, awaiting guardianship hearing and placement. He denies any specific complaints this morning. He is ambulating in the hallway. He has been eating his meals. He is cooperative with staff. He shows me pages in his coloring book that he has colored in. 04/10/22 16:07 D/W Charge nurse Elvi. She states the court visitor did come yesterday and there was further paperwork that was filled out and sent. Patient is now awaiting a hearing in early May regarding guardianship.
[2022-04-10] MEDS: traZODone 50 MG TABLET PO SCH (21:00)
[2022-04-11] MEDS: DONEPEZIL 5 MG TABLET PO SCH (08:10)
[2022-04-11] MEDS: MEMANTINE 5 MG TABLET PO SCH (08:10)
[2022-04-11] MEDS: traZODone 50 MG TABLET PO SCH (20:27)
[2022-04-12] MEDS: MEMANTINE 5 MG TABLET PO SCH (09:10)
[2022-04-12] MEDS: DONEPEZIL 5 MG TABLET PO SCH (09:10)
--- NOTE | 2022-04-12 11:07 | ED Physician Documentation ---
ED Addendum - Addendum Addendum: 04/12/22 11:05 S: no change in condition nor any new complaints. O: awake, conversant, NAD. Appears bored standing in doorway. A: dementia. Awaiting placement for care. P: no apparent need for change in diet, meds, intake.
[2022-04-12] MEDS: traZODone 50 MG TABLET PO SCH (20:22)
[2022-04-13] MEDS: DONEPEZIL 5 MG TABLET PO SCH (08:04)
[2022-04-13] MEDS: MEMANTINE 5 MG TABLET PO SCH (08:04)
[2022-04-13] MEDS: traZODone 50 MG TABLET PO SCH (20:45)
--- NOTE | 2022-04-14 07:08 | ED Physician Documentation ---
ED Addendum - Addendum Addendum: Patient seen on morning rounds. Eating breakfast. Denies any specific concerns. He remains in the emergency department awaiting placement.
[2022-04-14] MEDS: DONEPEZIL 5 MG TABLET PO SCH (10:01)
[2022-04-14] MEDS: MEMANTINE 5 MG TABLET PO SCH (10:02)
[2022-04-14] MEDS: traZODone 50 MG TABLET PO SCH (20:28)
[2022-04-15] MEDS: ACETAMINOPHEN 325 MG TABLET PO PRN (01:29)
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
[2022-04-15] MEDS: DONEPEZIL 5 MG TABLET PO SCH (09:05)
[2022-04-15] MEDS: MEMANTINE 5 MG TABLET PO SCH (09:05)
[2022-04-15] MEDS: traZODone 50 MG TABLET PO SCH (20:50)
[2022-04-15] MEDS: QUEtiapine 25 MG TABLET PO SCH (22:42)
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
--- NOTE | 2022-04-16 09:43 | ED Physician Documentation ---
ED Addendum - Addendum Addendum: 04/16/22 09:39 S: Patient seemed okay this morning. somber but not tearful. TelePsych had recommended Seroquel 25 mg bid and this was ordered scheduled last evening. Will continue this and other meds. O: pleasant and interacts okay. No complaints right now. A: dementia and ongoing issue of custody and placement. P: continue current meds with new addition of Seroquel 25 mg BID. reasess over the next few days.
[2022-04-16] MEDS: MEMANTINE 5 MG TABLET PO SCH (10:42)
[2022-04-16] MEDS: QUEtiapine 25 MG TABLET PO SCH ×2 (10:42→21:01)
[2022-04-16] MEDS: DONEPEZIL 5 MG TABLET PO SCH (10:42)
[2022-04-16] MEDS: traZODone 50 MG TABLET PO SCH (21:01)
[2022-04-17] MEDS: QUEtiapine 25 MG TABLET PO SCH ×2 (09:05→21:19)
[2022-04-17] MEDS: MEMANTINE 5 MG TABLET PO SCH (09:05)
[2022-04-17] MEDS: DONEPEZIL 5 MG TABLET PO SCH (09:05)
--- NOTE | 2022-04-17 13:51 | ED Physician Documentation ---
ED Addendum - Addendum Addendum: 04/17/22 13:50 Seems somewhat sad and slightly tearful when I talked with him briefly. He denied any specific problem per se. He had eaten this morning. Otherwise feeling okay. 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 He had started on Seroquel recently and we can see how that has an effect over the next couple of days. Continue with his other usual medicines.
[2022-04-17] MEDS: traZODone 50 MG TABLET PO SCH (21:19)
[2022-04-18] MEDS: QUEtiapine 25 MG TABLET PO SCH ×2 (09:52→20:32)
[2022-04-18] MEDS: DONEPEZIL 5 MG TABLET PO SCH (09:52)
[2022-04-18] MEDS: MEMANTINE 5 MG TABLET PO SCH (09:52)
[2022-04-18] MEDS: traZODone 50 MG TABLET PO SCH (20:32)
[2022-04-19] MEDS: MEMANTINE 5 MG TABLET PO SCH (09:25)
[2022-04-19] MEDS: DONEPEZIL 5 MG TABLET PO SCH (09:25)
[2022-04-19] MEDS: QUEtiapine 25 MG TABLET PO SCH ×2 (09:25→20:45)
--- NOTE | 2022-04-19 11:59 | ED Physician Documentation ---
ED Addendum - Addendum Addendum: 04/19/22 11:57 S: Still having a lot of crying spells, Seroquel was started a few days ago for this, seems reasonable to double the dose which I have done. O: VSS,normal, ambulating A: Stable dementia awaiting placement P: Reportedly home place we will be assessing him later this week for permanent placement. Continuing current medications, except doubling Seroquel to 50 mg twice a day.
[2022-04-19] MEDS: traZODone 50 MG TABLET PO SCH (20:45)
--- NOTE | 2022-04-20 08:19 | ED Physician Documentation ---
ED Addendum - Addendum Addendum: 04/20/22 08:19 Patient seen and examined on morning rounds. He is awake, alert, requesting breakfast. Denying any complaints. Unfortunately still pending placement
[2022-04-20] MEDS: QUEtiapine 25 MG TABLET PO SCH ×3 (10:18→20:30)
[2022-04-20] MEDS: MEMANTINE 5 MG TABLET PO SCH (11:01)
[2022-04-20] MEDS: DONEPEZIL 5 MG TABLET PO SCH (11:01)
[2022-04-20] MEDS: ACETAMINOPHEN 325 MG TABLET PO PRN (11:01)
[2022-04-20] MEDS: traZODone 50 MG TABLET PO SCH (20:30)
[2022-04-21] MEDS: QUEtiapine 25 MG TABLET PO SCH ×2 (09:19→21:00)
[2022-04-21] MEDS: MEMANTINE 5 MG TABLET PO SCH (09:19)
[2022-04-21] MEDS: DONEPEZIL 5 MG TABLET PO SCH (09:19)
[2022-04-21] MEDS: traZODone 50 MG TABLET PO SCH (21:00)
--- NOTE | 2022-04-22 07:41 | ED Physician Documentation ---
ED Addendum - Addendum Addendum: 04/22/22 09:04 Patient sitting in hallway. No current complaints. He ate his breakfast and has been ambulating on his own. Cooperative and pleasant with staff. He remains boarding in emergency department awaiting placement.
[2022-04-22] MEDS: QUEtiapine 25 MG TABLET PO SCH ×2 (09:09→21:15)
[2022-04-22] MEDS: MEMANTINE 5 MG TABLET PO SCH (09:09)
[2022-04-22] MEDS: DONEPEZIL 5 MG TABLET PO SCH (09:09)
[2022-04-22] MEDS: traZODone 50 MG TABLET PO SCH (21:14)
[2022-04-23] MEDS: DONEPEZIL 5 MG TABLET PO SCH (09:38)
[2022-04-23] MEDS: MEMANTINE 5 MG TABLET PO SCH (09:38)
[2022-04-23] MEDS: QUEtiapine 25 MG TABLET PO SCH ×2 (09:38→20:35)
[2022-04-23] MEDS: traZODone 50 MG TABLET PO SCH (20:35)
[2022-04-24] MEDS: DONEPEZIL 5 MG TABLET PO SCH (10:02)
[2022-04-24] MEDS: MEMANTINE 5 MG TABLET PO SCH (10:02)
[2022-04-24] MEDS: QUEtiapine 25 MG TABLET PO SCH ×2 (10:03→20:25)
[2022-04-24] MEDS: traZODone 50 MG TABLET PO SCH (20:25)
[2022-04-25] MEDS: DONEPEZIL 5 MG TABLET PO SCH (10:27)
[2022-04-25] MEDS: MEMANTINE 5 MG TABLET PO SCH (10:27)
[2022-04-25] MEDS: QUEtiapine 25 MG TABLET PO SCH ×2 (10:28→20:20)
[2022-04-25] MEDS: traZODone 50 MG TABLET PO SCH (20:20)
[2022-04-26] MEDS: MEMANTINE 5 MG TABLET PO SCH (10:05)
[2022-04-26] MEDS: QUEtiapine 25 MG TABLET PO SCH ×2 (10:05→20:17)
[2022-04-26] MEDS: DONEPEZIL 5 MG TABLET PO SCH (10:05)
[2022-04-26] MEDS: traZODone 50 MG TABLET PO SCH (20:17)
[2022-04-27] MEDS: MEMANTINE 5 MG TABLET PO SCH (09:31)
[2022-04-27] MEDS: DONEPEZIL 5 MG TABLET PO SCH (09:31)
[2022-04-27] MEDS: QUEtiapine 25 MG TABLET PO SCH ×2 (09:36→20:58)
[2022-04-27] MEDS ORDERED: BACITRACIN ZINC OINT 1 PACKET TOP STA (19:41)
[2022-04-27] MEDS: traZODone 50 MG TABLET PO SCH (20:57)
[2022-04-28] MEDS: QUEtiapine 25 MG TABLET PO SCH ×2 (09:14→20:32)
[2022-04-28] MEDS: MEMANTINE 5 MG TABLET PO SCH (09:14)
[2022-04-28] MEDS: DONEPEZIL 5 MG TABLET PO SCH (09:14)
--- NOTE | 2022-04-28 15:37 | ED Physician Documentation ---
ED Addendum - Addendum Addendum: 04/28/22 15:36 S. Seems happier and interacting with staff. No complaints. O. VSS, ambulating. Cooperative. A. Dementia, awaiting placement. P. Per NETWORK AND THREAT SUPPORT SPECIALIST.
[2022-04-28] MEDS: traZODone 50 MG TABLET PO SCH (20:34)
[2022-04-29] MEDS: MEMANTINE 5 MG TABLET PO SCH (09:41)
[2022-04-29] MEDS: QUEtiapine 25 MG TABLET PO SCH ×2 (09:41→20:53)
[2022-04-29] MEDS: DONEPEZIL 5 MG TABLET PO SCH (09:41)
--- NOTE | 2022-04-29 10:05 | ED Physician Documentation ---
ED Addendum - Addendum Addendum: 04/29/22 10:02 The patient was up and ambulatory. He did not appear in any distress. He states he had breakfast okay. I did not perceive any change in his interaction and mentation from last I saw him which was about 10 days ago. There is not been any recent change in his diet or medications or orders. Objective he is awake and alert and conversant and. Answers questions appropriately. No apparent distress. Assessment: Dementia with placement process for care long-term Plan: Still waiting to hear progress on this apparent very long-term process.
[2022-04-29] MEDS: traZODone 50 MG TABLET PO SCH (20:53)
[2022-04-30] MEDS: QUEtiapine 25 MG TABLET PO SCH ×2 (09:31→20:50)
[2022-04-30] MEDS: MEMANTINE 5 MG TABLET PO SCH (09:31)
[2022-04-30] MEDS: DONEPEZIL 5 MG TABLET PO SCH (09:31)
--- NOTE | 2022-04-30 09:48 | ED Physician Documentation ---
ED Addendum - Addendum Addendum: 04/30/22 09:48 He seems happy this morning, interacting with staff. No stated complaints. Vitals unremarkable, My understanding is he has been turned down by [facility] and [facility] due to "flight risk." Although I know of no actual risk of flight per se. Assessment: Dementia Plan: Boarding for placement, no school social worker available over the weekend here until Sunday. My understanding is that there is some sort of court date on May 24.
[2022-04-30] MEDS: traZODone 50 MG TABLET PO SCH (20:50)
[2022-05-01] MEDS: DONEPEZIL 5 MG TABLET PO SCH (09:07)
[2022-05-01] MEDS: QUEtiapine 25 MG TABLET PO SCH ×2 (09:07→20:35)
[2022-05-01] MEDS: MEMANTINE 5 MG TABLET PO SCH (09:07)
--- NOTE | 2022-05-01 13:29 | ED Physician Documentation ---
ED Addendum - Addendum Addendum: 05/01/22 13:22 Subjective: pt is alert, well appearing. ambulatory in hallways. Seems less emotional today. interactive with staff and has helped "fold linens" he took a long walk with staff yesterday. Appropriate vital signs He is still awaiting placement at at adult living home, placement undetermined Assessment: older gentleman with early dementia unable to remain at home with his family plan: continue to board for placement. Social work will be here tomorrow and was not available for the last 72 hours.
[2022-05-01] MEDS: traZODone 50 MG TABLET PO SCH (20:35)
[2022-05-02] MEDS: DONEPEZIL 5 MG TABLET PO SCH (09:24)
[2022-05-02] MEDS: QUEtiapine 25 MG TABLET PO SCH ×2 (09:24→20:34)
[2022-05-02] MEDS: MEMANTINE 5 MG TABLET PO SCH (09:24)
[2022-05-02] MEDS: traZODone 50 MG TABLET PO SCH (20:34)
--- NOTE | 2022-05-02 23:04 | ED Physician Documentation ---
ED Addendum - Addendum Addendum: 05/02/22 23:02 S: alert, no complaints. Interactive with staff. Vitals stable O: "I just want to go home." A: 61 year old male with early demential who remains in the ED pending placement at an appropriate [facility] P: continue to f/u with social work
--- NOTE | 2022-05-03 07:22 | ED Physician Documentation ---
ED Addendum - Addendum Addendum: 05/03/22 07:21 The patient is awake alert and interactive with staff. He seemed a good mood this morning and was wearing a hollowing costume that someone had obtained for him. I imagine we should start considering Nathalia presents. Objective awake alert and interactive. Seems to be doing okay on current medications and diet. Assessment: The patient with dementia still waiting placement at adult living dementia unit Plan continue with current medications diet and try to increase activity.
[2022-05-03] MEDS: MEMANTINE 5 MG TABLET PO SCH (08:33)
[2022-05-03] MEDS: DONEPEZIL 5 MG TABLET PO SCH (08:33)
[2022-05-03] MEDS: QUEtiapine 25 MG TABLET PO SCH ×2 (08:33→20:25)
[2022-05-03] MEDS: traZODone 50 MG TABLET PO SCH (20:25)
[2022-05-04] MEDS: QUEtiapine 25 MG TABLET PO SCH ×2 (08:40→21:27)
[2022-05-04] MEDS: DONEPEZIL 5 MG TABLET PO SCH (08:40)
[2022-05-04] MEDS: MEMANTINE 5 MG TABLET PO SCH (08:40)
--- NOTE | 2022-05-04 17:03 | ED Physician Documentation ---
ED Addendum - Addendum Addendum: 05/04/22 17:02 The patient was signed out to me at change of shift for continued observation in the ED, awaiting acceptance to a long-term care facility. The patient had no issues today. He ate and ambulated around the emergency department as usual. He was pleasant and cooperative. Social work continues to work on his case
[2022-05-04] MEDS: traZODone 50 MG TABLET PO SCH (21:27)
[2022-05-05] MEDS: DONEPEZIL 5 MG TABLET PO SCH (08:20)
[2022-05-05] MEDS: MEMANTINE 5 MG TABLET PO SCH (08:20)
[2022-05-05] MEDS: QUEtiapine 25 MG TABLET PO SCH ×2 (08:20→20:50)
[2022-05-05] MEDS: traZODone 50 MG TABLET PO SCH (20:50)
[2022-05-06] MEDS: DONEPEZIL 5 MG TABLET PO SCH (09:18)
[2022-05-06] MEDS: QUEtiapine 25 MG TABLET PO SCH ×2 (09:19→20:57)
[2022-05-06] MEDS: MEMANTINE 5 MG TABLET PO SCH (09:19)
[2022-05-06] MEDS: traZODone 50 MG TABLET PO SCH (20:57)
[2022-05-07] MEDS: DONEPEZIL 5 MG TABLET PO SCH (08:02)
[2022-05-07] MEDS: MEMANTINE 5 MG TABLET PO SCH (08:02)
[2022-05-07] MEDS: QUEtiapine 25 MG TABLET PO SCH ×2 (08:02→20:26)
--- NOTE | 2022-05-07 09:30 | ED Physician Documentation ---
ED Addendum - Addendum Addendum: 05/07/22 09:29 Subjective: no specific complaints today. The [employer] have a bye, so he does not have any specific football games he wants to watch as the [email or web address] are his favorite team. Objective: has been ambulatory appears well, recent vital signs reviewed and normal. Assessment: Dementia, unable to care for self Plan: Hopefully social work will be able to find appropriate disposition soon.
[2022-05-07] MEDS: traZODone 50 MG TABLET PO SCH (20:26)
[2022-05-08] MEDS: QUEtiapine 25 MG TABLET PO SCH ×2 (09:04→20:37)
[2022-05-08] MEDS: MEMANTINE 5 MG TABLET PO SCH (09:04)
[2022-05-08] MEDS: DONEPEZIL 5 MG TABLET PO SCH (09:04)
--- NOTE | 2022-05-08 14:24 | ED Physician Documentation ---
ED Addendum - Addendum Addendum: 05/08/22 14:23 The patient is up and ambulatory. No apparent distress. He had a hollowing costume on earlier today and seemed to be enjoying it. Objective awake and alert and conversant. No apparent distress. Ambulatory without any ataxia. Assessment: Dementia with placement issues Plan: Continue with current treatment and diet and activity
[2022-05-08] MEDS ORDERED: OLANZapine ODT 5 MG TABLET TL STA (14:44)
[2022-05-08] MEDS: traZODone 50 MG TABLET PO SCH (20:37)
[2022-05-09] MEDS: MEMANTINE 5 MG TABLET PO SCH (09:26)
[2022-05-09] MEDS: QUEtiapine 25 MG TABLET PO SCH ×2 (09:26→20:43)
[2022-05-09] MEDS: DONEPEZIL 5 MG TABLET PO SCH (09:26)
--- NOTE | 2022-05-09 17:16 | ED Physician Documentation ---
ED Addendum - Addendum Addendum: 05/09/22 17:15 Subjective: No complaints. He was briefly upset earlier in the day but seems to have rebounded. Objective, appears well, ambulatory in the halls, Assessment dementia: Needs placement Plan evidently there is an adult family home coming to assess him Earnestine sauceda the home health care social worker also has called back for multiple other [facility] that have expressed interest.
[2022-05-09] MEDS: traZODone 50 MG TABLET PO SCH (20:43)
[2022-05-10] MEDS: MEMANTINE 5 MG TABLET PO SCH (09:09)
[2022-05-10] MEDS: QUEtiapine 25 MG TABLET PO SCH ×2 (09:09→21:36)
[2022-05-10] MEDS: DONEPEZIL 5 MG TABLET PO SCH (09:09)
--- NOTE | 2022-05-10 11:57 | ED Physician Documentation ---
ED Addendum - Addendum Addendum: Patient seen during morning rounds. S -Patient without any specific complaints. O - Ambulatory, eating meals, watching shows on computer A - Dementia P - He was a assessed by an adult family home today and reportedly has been accepted per FIDENCIO Colby. Earnestine has requested that his prescriptions be sent to [facility] which I have done. The hope is to have him transferred to the adult family home by Sunday. She has not made the patient aware of this plan yet.
[2022-05-10] MEDS: traZODone 50 MG TABLET PO SCH (21:36)
--- NOTE | 2022-05-11 08:38 | ED Physician Documentation ---
ED Addendum - Addendum Addendum: 05/11/22 08:36 Subjective:No complaints this morning. Objective: Ambulatory, appears in good spirits. Assessment: Dementia Plan: Has been boarding in ED pending placement. Met with adult family home yesterday and has been accepted with tentative plan for transfer on Sunday. I have sent prescriptions yesterday
[2022-05-11] MEDS: MEMANTINE 5 MG TABLET PO SCH (09:35)
[2022-05-11] MEDS: DONEPEZIL 5 MG TABLET PO SCH (09:35)
[2022-05-11] MEDS: QUEtiapine 25 MG TABLET PO SCH ×2 (09:35→21:01)
[2022-05-11] MEDS: traZODone 50 MG TABLET PO SCH (21:01)
[2022-05-11 21:04] VITALS: BP 118/68
--- NOTE | 2022-05-12 09:15 | ED Physician Documentation ---
ED Addendum - Addendum Addendum: 05/12/22 09:14Subjective: The patient is feeling well today. At the moment he is feeling anticipatory excitement and slightly nervous about going to another facility. No particular complaints. He has been accepted at a long-term care facility and is leaving this morning. The facility is still excepting. At this point a transportation has arrived to take him. Objective: He is awake alert and conversant. Ambulatory without any problems. No acute distress. No particular complaints of pains. Assessment: Dementia and inability for self-care Disposition: The patient is discharged from the department in stable condition.
[2022-05-12] MEDS: DONEPEZIL 5 MG TABLET PO SCH (09:23)
[2022-05-12] MEDS: QUEtiapine 25 MG TABLET PO SCH (09:23)
[2022-05-12] MEDS: MEMANTINE 5 MG TABLET PO SCH (09:23)
== END 2022-05-12 09:45 | disposition home or self-care (01) ==
LOC: EDUNIT# → ED 05:36
DX: Z02.2 Encounter for examination for admission to residential institution (principal); G30.9 Alzheimer's disease, unspecified; R45.6 Violent behavior; F01.511 Vascular dementia, unspecified severity, with agitation; Z91.83 Wandering in diseases classified elsewhere; R10.9 Unspecified abdominal pain; M25.572 Pain in left ankle and joints of left foot; R44.3 Hallucinations, unspecified; R39.198 Other difficulties with micturition; Z20.822 Contact with and (suspected) exposure to COVID-19; Z74.2 Need for assistance at home and no other household member able to render care; F02.818 Dementia in other diseases classified elsewhere, unspecified severity, with other behavioral disturbance
CPT/HCPCS: 36415; 51798; 73610; 74018; 80048; 80053; 80306; 80320; 81003; 83690; 83735; 84443; 84550; 85025; 87633; 90834; 93005; 99285; A9270; G0425; J8499; 81001; 87086